=== PATIENT | male | born 1955 | race Caucasian/White ===

== ENCOUNTER 2016-10-10 09:59 | Emergency (ER) | payer BC ==
[2016-10-10] MEDS ORDERED: SODIUM CHLORIDE 0.9% 1,000 ML IV STA (10:23)
[2016-10-10 10:48] LABS: Basophils % (A) 0 %; CH 31.9; CHCM 34.4; Eosinophils # (A) 0.3 k/uL (0-0.7); Eosinophils % (A) 6 %; HCT 43.9 % (39.0-53.0); HDW 2.58; HGB 14.6 gm/dL (13.0-17.5); Luc % (Auto) 2; Lymphocytes # (A) 0.8 k/uL (1.0-4.8); Lymphocytes % (A) 15 %; MCH 30.9 pg (25.0-35.0); MCHC 33.2 g/dL (31.0-37.0); MCV 93.2 fL (80.0-100.0); Mean Platelet Volume 6.9; Monocytes # (A) 0.5 k/uL (0-1.0); Monocytes % (A) 9 %; Neutrophils # (A) 3.7 k/uL (1.3-7.7); Neutrophils % (A) 68 %; RBC 4.71 m/uL (4.30-5.90); WBC 5.5 k/uL (3.8-10.6)
[2016-10-10 10:55] LABS: ALT 42 U/L (21-72); AST 28 U/L (17-59); Alkaline Phosphatase 61 U/L (38-126); Anion Gap 10 mmol/L; Blood Urea Nitrogen 19 mg/dL (9-20); Calcium 10.2 mg/dL (8.4-10.2); Carbon Dioxide 25 mmol/L (22-30); Chloride 106 mmol/L (98-107); Glucose 116 mg/dL (74-99); Magnesium 1.8 mg/dL (1.6-2.3); Non-African American GFR(MDRD) >60 (>60 ml/min/1.73 sqM); Potassium 4.6 mmol/L (3.5-5.1); Sodium 141 mmol/L (137-145); Total Bilirubin 0.4 mg/dL (0.2-1.3); Total Protein 7.2 g/dL (6.3-8.2)
[2016-10-10 10:58] LABS: INR 1.1 (<1.1); Partial Thromboplastin Time 23.8 sec (22.0-30.0); Prothrombin Time 10.7 sec (9.0-12.0)
[2016-10-10] MEDS ORDERED: ONDANSETRON 4 MG/2 ML VIAL IVP STA (11:00)
--- NOTE | 2016-10-10 11:01 | ED ---
GI Bleed HPI - General Chief complaint: GI Bleed Stated complaint: RECTAL BLEEDING Time Seen by Provider: 10/10/16 10:14 Source: patient, RN notes reviewed Mode of arrival: ambulatory Limitations: no limitations - History of Present Illness Initial comments: 61-year-old male presents emergency Department chief complaint of rectal bleeding. Patient states this has been present for over 2 weeks. Patient states it started right after him having his cholecystectomy done by Dr. Zavala. Patient states that he had this secondary to being told that he had dysfunctional gallbladder. Patient states he was having nausea. Patient states she's been having ongoing nausea and which she originally had a Ramakrishna fundoplication and then a cholecystectomy. Patient states that he just feels off. Patient states that he still has his nausea and which they've initiated contributed to his [place] use after his surgery. Patient states that he was told that he had also colitis years ago by Dr. Delgado though he had a colonoscopy in July which showed no acute abnormality's. He states that he did have a history of hemorrhoids though Dr. Cee said there is no worries and no abnormalities on his colonoscopy. Patient denies any melena. Denies any fever or chills. Denies any dysuria hematuria. - Related Data Home Medications Medication Instructions Recorded Confirmed amLODIPine [Norvasc] 5 mg PO W/SUPPER 06/15/14 10/10/16 Krill Oil 500 mg PO DAILY 05/21/15 10/10/16 Temazepam [Restoril] 15 mg PO HS PRN 06/05/15 10/10/16 Rosuvastatin [Crestor] 20 mg PO DAILY 07/08/16 10/10/16 Lisinopril [Zestril] 10 mg PO W/SUPPER 09/08/16 10/10/16 Multivitamins, Thera [Multivitamin] 1 tab PO DAILY 09/08/16 10/10/16 Acetaminophen Tab [Tylenol Tab] 1,000 mg PO Q6HR PRN 10/10/16 10/10/16 Acetaminophen/Diphenhydramine 1 tab PO HS PRN 10/10/16 10/10/16 [Tylenol PM 500-25mg] Previous Rx's Medication Instructions Recorded Aspirin EC [Ecotrin Low Dose] 81 mg PO DAILY tablet. 05/24/15 Metoprolol Tartrate 12.5 mg PO BID #15 tab 05/24/15 ALPRAZolam [Xanax] 0.25 mg PO DAILY PRN #30 tab 06/06/15 Allergies Allergy/AdvReac Type Severity Reaction Status Date / Time Penicillins AdvReac Rash/Hives Verified 10/10/16 10:34 Review of Systems ROS Statement: Those systems with pertinent positive or pertinent negative responses have been documented in the HPI. ROS Other: All systems not noted in ROS Statement are negative. Past Medical History Past Medical History: Asthma, Chest Pain / Angina, GERD/Reflux, Hyperlipidemia, Hypertension, Myocardial Infarction (non Q-wave), Osteoarthritis (OA) Additional Past Medical History / Comment(s): . Last Myocardial Infarction Date:: 05/22/15 History of Any Multi-Drug Resistant Organisms: None Reported Past Surgical History: Heart Catheterization With Stent, Hernia Repair, Orthopedic Surgery Additional Past Surgical History / Comment(s): deviated septum, rt shoulder rotator cuff, EGD, colonoscopy,lt inguinal hernia repair, vivien fundoplication , left carpal tunnel Past Anesthesia/Blood Transfusion Reactions: No Reported Reaction Date of Last Stent Placement:: 05-23-15 Past Psychological History: Anxiety Additional Psychological History / Comment(s): . Smoking Status: Former smoker Past Alcohol Use History: Occasional Additional Past Alcohol Use History / Comment(s): quit smoking CIGARETTES at age 25, started smoking at age 16 Past Drug Use History: None Reported - Past Family History Sister(s) Family Medical History: Cancer (Blood cancer not determined to be leukemia or multiple myeloma) Mother Family Medical History: Chest Pain / Angina, Diabetes Mellitus Additional Family Medical History / Comment(s): age 84, heart problems Father Family Medical History: Chest Pain / Angina Additional Family Medical History / Comment(s): age 72 General Exam Limitations: no limitations General appearance: alert, in no apparent distress Head exam: Present: atraumatic, normocephalic, normal inspection Neck exam: Present: normal inspection. Absent: tenderness, meningismus, lymphadenopathy Respiratory exam: Present: normal lung sounds bilaterally. Absent: respiratory distress, wheezes, rales, rhonchi, stridor Cardiovascular Exam: Present: regular rate, normal rhythm, normal heart sounds. Absent: systolic murmur, diastolic murmur, rubs, gallop, clicks GI/Abdominal exam: Present: soft, tenderness (Minimal), normal bowel sounds. Absent: distended, guarding, rebound, rigid Back exam: Absent: CVA tenderness (R), CVA tenderness (L) Neurological exam: Present: alert, oriented X3, CN II-XII intact Course Vital Signs 10/10/16 10:10 Temperature 98.5 F Pulse Rate 52 L Respiratory 16 Rate Blood Pressure 110/52 O2 Sat by Pulse 98 Oximetry Medical Decision Making - Medical Decision Making 61-year-old male presented for rectal bleeding. This has been going on for several weeks. Patient's in [facility] and Hemoccult-negative at this time. Patient has follow up appointment on Thursday with Dr. Chan. Patient will be discharged at this time with follow-up. Return parameters were discussed. - Lab Data Result diagrams: 10/10/16 10:34 10/10/16 10:34 Lab Results 10/10/16 10/10/16 10/10/16 Range/Units 10:34 10:34 10:34 WBC 5.5 (3.8-10.6) k/uL RBC 4.71 (4.30-5.90) m/uL Hgb 14.6 (13.0-17.5) gm/dL Hct 43.9 (39.0-53.0) % MCV 93.2 (80.0-100.0) fL MCH 30.9 (25.0-35.0) pg MCHC 33.2 (31.0-37.0) g/dL RDW 13.0 (11.5-15.5) % Plt Count 217 (150-450) k/uL Neutrophils % 68 % Lymphocytes % 15 % Monocytes % 9 % Eosinophils % 6 % Basophils % 0 % Neutrophils # 3.7 (1.3-7.7) k/uL Lymphocytes # 0.8 L (1.0-4.8) k/uL Monocytes # 0.5 (0-1.0) k/uL Eosinophils # 0.3 (0-0.7) k/uL Basophils # 0.0 (0-0.2) k/uL PT (9.0-12.0) sec INR (<1.1) APTT (22.0-30.0) sec Sodium 141 (137-145) mmol/L Potassium 4.6 (3.5-5.1) mmol/L Chloride 106 (98-107) mmol/L Carbon Dioxide 25 (22-30) mmol/L Anion Gap 10 mmol/L BUN 19 (9-20) mg/dL Creatinine 0.77 (0.66-1.25) mg/dL Est GFR (MDRD) Af Amer >60 (>60 ml/min/1.73 sqM) Est GFR (MDRD) Non-Af >60 (>60 ml/min/1.73 sqM) Glucose 116 H (74-99) mg/dL Calcium 10.2 (8.4-10.2) mg/dL Magnesium 1.8 (1.6-2.3) mg/dL Total Bilirubin 0.4 (0.2-1.3) mg/dL AST 28 (17-59) U/L ALT 42 (21-72) U/L Alkaline Phosphatase 61 (38-126) U/L Total Creatine Kinase 163 (55-170) U/L CK-MB (CK-2) 3.5 H* (0.0-2.4) ng/mL CK-MB (CK-2) Rel Index 2.1 Troponin I <0.012 (0.000-0.034) ng/mL Total Protein 7.2 (6.3-8.2) g/dL Albumin 4.4 (3.5-5.0) g/dL Lipase 38 (23-300) U/L Stool Occult Blood (Negative) 10/10/16 10/10/16 Range/Units 10:34 12:04 WBC (3.8-10.6) k/uL RBC (4.30-5.90) m/uL Hgb (13.0-17.5) gm/dL Hct (39.0-53.0) % MCV (80.0-100.0) fL MCH (25.0-35.0) pg MCHC (31.0-37.0) g/dL RDW (11.5-15.5) % Plt Count (150-450) k/uL Neutrophils % % Lymphocytes % % Monocytes % % Eosinophils % % Basophils % % Neutrophils # (1.3-7.7) k/uL Lymphocytes # (1.0-4.8) k/uL Monocytes # (0-1.0) k/uL Eosinophils # (0-0.7) k/uL Basophils # (0-0.2) k/uL PT 10.7 (9.0-12.0) sec INR 1.1 (<1.1) APTT 23.8 (22.0-30.0) sec Sodium (137-145) mmol/L Potassium (3.5-5.1) mmol/L Chloride (98-107) mmol/L Carbon Dioxide (22-30) mmol/L Anion Gap mmol/L BUN (9-20) mg/dL Creatinine (0.66-1.25) mg/dL Est GFR (MDRD) Af Amer (>60 ml/min/1.73 sqM) Est GFR (MDRD) Non-Af (>60 ml/min/1.73 sqM) Glucose (74-99) mg/dL Calcium (8.4-10.2) mg/dL Magnesium (1.6-2.3) mg/dL Total Bilirubin (0.2-1.3) mg/dL AST (17-59) U/L ALT (21-72) U/L Alkaline Phosphatase (38-126) U/L Total Creatine Kinase (55-170) U/L CK-MB (CK-2) (0.0-2.4) ng/mL CK-MB (CK-2) Rel Index Troponin I (0.000-0.034) ng/mL Total Protein (6.3-8.2) g/dL Albumin (3.5-5.0) g/dL Lipase (23-300) U/L Stool Occult Blood Negative (Negative) Disposition Clinical Impression: Rectal bleeding Disposition: HOME SELF-CARE Condition: Stable Instructions: Gastrointestinal Bleeding (ED) Additional Instructions: Please return to the Emergency Department if symptoms worsen or any other concerns. Referrals: Rafat Eduardo MD [Primary Care Provider] - 1-2 days Samantha Mac MD [STAFF PHYSICIAN] - 1-2 days Time of Disposition: 12:21
[2016-10-10 11:12] LABS: Creatine Kinase 163 U/L (55-170)
--- NOTE | 2016-10-10 11:16 | XR ---
EXAMINATION TYPE: XR KUB DATE OF EXAM ORDERED: 10/10/2016 11:11 AM HISTORY: Abdominal pain and rectal bleeding. COMPARISON: Previous study dated 05/18/2013. FINDINGS: The abdominal gas pattern is normal. There is no evidence of obstruction or free air. Ther e is some vascular calcification within the pelvis. There is spondylosis deformans within the spine. IMPRESSION: NO ACUTE INTRA-ABDOMINAL ABNORMALITY.
[2016-10-10 11:26] LABS: Troponin I <0.012 ng/mL (0.000-0.034)
[2016-10-10 11:30] LABS: Creatine Kinase MB 3.5 ng/mL (0.0-2.4)
[2016-10-10 12:45] VITALS: BP 149/68; PULSE 65; RESP 18; TEMP 98.2
== END 2016-10-10 12:40 | disposition home or self-care (01) ==
LOC: EC 09:59
DX: K62.5 Hemorrhage of anus and rectum (principal); R11.0 Nausea; R10.819 Abdominal tenderness, unspecified site; Z90.49 Acquired absence of other specified parts of digestive tract; Z79.82 Long term (current) use of aspirin; Z79.899 Other long term (current) drug therapy; Z88.0 Allergy status to penicillin; Z95.5 Presence of coronary angioplasty implant and graft; F41.9 Anxiety disorder, unspecified; Z87.891 Personal history of nicotine dependence
CPT/HCPCS: 36415; 80053; 82550; 82553; 83690; 83735; 84484; 85025; 85610; 85730; 82272; 74000; 99284; 96374; 96361; J2405

== ENCOUNTER → 2017-03-30 | Outpatient (CLI) | payer BC ==
--- NOTE | 2017-03-30 21:31 | XR ---
EXAMINATION TYPE: XR chest 2V DATE OF EXAM: 03/30/2017 COMPARISON: Prior chest x-ray June 05, 2015. HISTORY: Shortness of breath for 3 days. TECHNIQUE: Frontal and lateral views of the chest are obtained. FINDINGS: There is no focal air space opacity, pleural effusion, or pneumothorax seen. The cardiac silhouette size is within normal limits. Bilateral hilar prominence raises concern for underlying pu lmonary artery hypertension. Some multilevel spurring in the thoracic spine is present. IMPRESSION: No acute cardiopulmonary process.
== END ==
LOC: RADXRMAIN 18:38
PROVIDERS: ATTEND Internal Medicine Geriatric Medicine
DX: R06.02 Shortness of breath (principal)
CPT/HCPCS: 71020; 85379

== ENCOUNTER → 2017-05-21 | Outpatient (CLI) | payer BC ==
--- NOTE | 2017-05-21 12:56 | XR ---
EXAMINATION TYPE: XR chest 2V DATE OF EXAM: 05/21/2017 COMPARISON: 03/30/2017 HISTORY: Chest pain. History of heart attack. TECHNIQUE: Frontal and lateral views of the chest are obtained. FINDINGS: There is no focal air space opacity, pleural effusion, or pneumothorax seen. The cardiac silhouette size is within normal limits. The osseous structures are intact. Mild degenerative oconnell es of the thoracic spine. Bilateral hilar prominence remains, that may clinically correlate with pulm onary arterial hypertension. IMPRESSION: No acute cardiopulmonary process.
== END ==
LOC: RADXRMAIN 12:39
PROVIDERS: ATTEND Internal Medicine Geriatric Medicine
DX: R06.02 Shortness of breath (principal)
CPT/HCPCS: 71020

== ENCOUNTER → 2017-09-08 | Outpatient (CLI) | payer BC ==
[2017-09-08 10:37] LABS: Basophils % (A) 0 %; CH 30.6; CHCM 32.1; Eosinophils # (A) 0.2 k/uL (0-0.7); Eosinophils % (A) 3 %; HCT 47.9 % (39.0-53.0); HDW 2.35; HGB 15.2 gm/dL (13.0-17.5); Luc # (Auto) 0.13; Luc % (Auto) 2; Lymphocytes # (A) 0.8 k/uL (1.0-4.8); Lymphocytes % (A) 14 %; MCH 30.4 pg (25.0-35.0); MCHC 31.8 g/dL (31.0-37.0); MCV 95.5 fL (80.0-100.0); Mean Platelet Volume 6.6; Monocytes # (A) 0.6 k/uL (0-1.0); Monocytes % (A) 9 %; Neutrophils # (A) 4.4 k/uL (1.3-7.7); Neutrophils % (A) 72 %; RBC 5.01 m/uL (4.30-5.90); RDW 14.3 % (11.5-15.5); WBC 6.1 k/uL (3.8-10.6); WBC (Perox) 5.97
[2017-09-08 10:48] LABS: ALT 40 U/L (21-72); AST 27 U/L (17-59); Alkaline Phosphatase 74 U/L (38-126); Anion Gap 9 mmol/L; Blood Urea Nitrogen 13 mg/dL (9-20); Carbon Dioxide 30 mmol/L (22-30); Chloride 103 mmol/L (98-107); Cholesterol 170 mg/dL (<200); Glucose 98 mg/dL (74-99); HDL Cholesterol 62 mg/dL (40-60); Non-African American GFR(MDRD) >60 (>60 ml/min/1.73 sqM); Potassium 4.7 mmol/L (3.5-5.1); Sodium 142 mmol/L (137-145); Total Bilirubin 0.4 mg/dL (0.2-1.3); Total Protein 6.8 g/dL (6.3-8.2)
== END | disposition home or self-care (01) ==
LOC: LABWHC1 10:03
PROVIDERS: ATTEND Internal Medicine Geriatric Medicine
DX: I10 Essential (primary) hypertension (principal); R79.9 Abnormal finding of blood chemistry, unspecified; E78.5 Hyperlipidemia, unspecified
CPT/HCPCS: 36415; 80053; 80061; 83036; 84439; 84443; 85025

== ENCOUNTER 2017-09-15 09:37 | Day surgery (SDC) | payer BC ==
[2017-09-10 08:36] VITALS: BMI 22.8
--- NOTE | 2017-09-14 22:26 | HP ---
HISTORY AND PHYSICAL CHIEF COMPLAINT: Right shoulder pain. 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 He is having pain with overhead use and at night. He notes weakness as well. He previously underwent open surgery for that shoulder in 2004. PAST MEDICAL HISTORY: Significant for hypertension, coronary artery disease. PAST SURGICAL HISTORY: Significant for previous cardiac stent placement and cholecystectomy along with open right shoulder surgery. FAMILY HISTORY: Significant for heart disease and cancer. SOCIAL HISTORY: Significant for social alcohol use. He quit smoking in 1979. REVIEW OF SYSTEMS: Sixteen point review of systems otherwise reviewed and noncontributory. EXAMINATION: The patient is approximately 5 feet 9 inches, 155 pounds of mesomorphic habitus. HEENT is nonfocal. Neck is supple. RIGHT SHOULDER: He has a healed anterior scar with some anterior deltoid atrophy. He has moderate subacromial crepitus. He is tender about the anterior subacromial space. Active range of motion: Forward elevation 160 degrees, external rotation with the arm to the side 50 degrees, internal rotation is to L1. Motor strength is 4/5 for external rotation with arm at the side, 4+ or 5 for abduction. Impingement, Neer and Speed tests are positive. His distal neurovascular otherwise appears intact in the right upper extremity. X-rays of the right shoulder obtained in the office show diminished humeral head to acromial distance. There is calcification adjacent to the greater tuberosity. IMPRESSION: Recurrent right rotator cuff tear/biceps tendinosis. RECOMMENDATIONS: I talked to the patient at length regarding his treatment options. He has tried previous therapy, injections and medications with only partial temporary relief. At this point, he opts to proceed with surgery. We will plan to proceed with arthroscopic evaluation with probable revision, subacromial decompression, possible arthroscopic rotator cuff repair versus debridement and possible biceps tenotomy. Risks and benefits were discussed at length in layman's terms. MMODL / IJN: [id number] /
[~2017-09-15 09:37] MED LIST: DEXAMETHASONE SOD PHOSPHATE 10 MG/ML 1 ML VIAL IV ONE; HYDROmorphone 0.5 MG/0.5 ML SYRINGE IVP PRN; LACTATED RINGERS 1,000 ML IV SCH; MIDAZOLAM 2 MG/2 ML VIAL IV PRN; ONDANSETRON 4 MG/2 ML VIAL IVP ONE; ceFAZolin IN SWFI 2 GM/20 ML SYRINGE IVP ONE
[2017-09-15 09:54] VITALS: RESP 16
--- NOTE | 2017-09-15 10:06 | P.ONQ ---
Anesthesiology Proc Note - PNB - Peripheral Nerve Block Performed Right Interscalene Single Time Out Performed: Yes (Time Out at 10:12) Procedure Start Time: 10:13 Procedure Stop Time: :21 Indication: Acute Post-Operative Pain, Requested by physician Sedation Type: Sedate with meaningful contact maintained Preparation: Sterile Prep Position: Supine Catheter: None Needle Types: Facet Needle Size: 100mm (4") Needle Gauge: 20 Technique: Ultrasound Injectate: 0.5% Ropivacaine (see comment for volume) (30 mls) Blood Aspirated: No Pain Paresthesia on Injection Noted: No Resistance on Injection: Normal Events: Uneventful and Well Tolerated
[2017-09-15] MEDS ORDERED: LIDOCAINE 1% 20 ML VIAL (10MG/ML) FOR IV START INTRADERMA ONE (10:10)
[2017-09-15] MEDS ORDERED: EPINEPHrine (PF) 1 ML in SODIUM CHLORIDE 0.9% IRRIGATIO 3,000 ML IRRIGATION ONE ×8 (10:54)
[2017-09-15] MEDS ORDERED: ROPIVACAINE 5 MG/ML 30 ML VIAL ONE (10:54)
[2017-09-15] MEDS ORDERED: SUCCINYLCHOLINE CHLORIDE 100 MG/5 ML SYR IV ONE (10:54)
[2017-09-15] MEDS ORDERED: ePHEDrine SULFATE/0.9% NACL/PF 50 MG/5 ML SYRINGE IV ONE (10:54)
[2017-09-15] MEDS ORDERED: fentaNYL (PF) 50 MCG/ML 2 ML AMP ONE (10:54)
[2017-09-15] MEDS ORDERED: MIDAZOLAM 2 MG/2 ML VIAL ONE (10:54)
[2017-09-15] MEDS ORDERED: PROPOFOL 10 MG/ML 20 ML VIAL IV ONE (10:54)
[2017-09-15] MEDS ORDERED: LIDOCAINE 1% INJ 10MG/ML (20 ML MDV) ONE (10:54)
[2017-09-15 12:29] VITALS: TEMP 97
--- NOTE | 2017-09-15 12:30 | P.OP ---
Date of Procedure: 09/15/17 Preoperative Diagnosis: Symptomatic right rotator cuff tear Postoperative Diagnosis: 3 cm protracted rotator cuff tear/high-grade partial-thickness tear long head of the biceps/grade 2 chondral injury central glenoid Procedure(s) Performed: Right shoulder arthroscopic biceps tenotomy/rotator cuff repair/glenoid chondrectomy Implants: Arthrex 4.75 mm swivel lock anchor 4 [facility] Surgeon: Jimmie Self It Infrastructure Manager #1: Vazquez Chatterjee Estimated Blood Loss (ml): 10 Pathology: none sent Condition: stable Disposition: PACU Indications for Procedure: The patient's a 62-year-old gentleman who presents with progressive right shoulder pain despite conservative measures. Clinically he was noted to have evidence of a symptomatic recurrent rotator cuff tear. He did undergo an open repair many years ago. A discussion of the risks and benefits of continued conservative measures versus operative intervention was made with patient. He opted to proceed with surgery. Operative risks to include infection, neurovascular injury, development of blood clots, possible tendon rerupture, possible postoperative stiffness and need for subsequent procedures was discussed. Informed consent was obtained. Operative Findings: As below Description of Procedure: The patient was brought to the operating room, and after induction of general anesthesia was placed in a beachchair position. The bony prominences were appropriately padded. I examined the right shoulder. He did have some restriction to maximum abduction and external rotation. No gross adhesions were encountered. The right upper extremity was prepped and draped in normal fashion. The bony outlines the acromion, distal clavicle, and coracoid process were outlined with a skin marker. The glenohumeral joint was inflated with 50 mL of saline utilizing a spinal needle from posterior approach. A posterior portal was made through a 5 mm skin incision 1 cm medial and inferior to the posterior lateral border of the acromion. A blunt trocar was used to easily into the joint. Diagnostic arthroscopy was performed. An anterior portal was made just above the subscapularis tendon lateral to the coracoid process through a 5 mm skin incision. The patient was noted to have a high-grade partial-thickness tear of the intra-articular portion of the long head of the biceps. It was elected to proceed with release/tenotomy at this point. This was released from the superior labrum with electrocautery and allowed to retract the bicipital groove. A tear the superior labrum was also noted in was debrided back to stable base with a motorized shaver. A grade 2 chondral injury was noted involving the central portion of the glenoid. There was a loose chondral fragment that was debrided back to stable base with a motorized shaver. The subscapularis appeared intact. The anterior labrum was intact. The inferior recess was inspected. The rotator cuff was inspected and a 3 cm tear involving the infraspinatus and supraspinatus tendons was noted that was retracted not quite to the glenoid. The arthroscope was placed in the subacromial space. A lateral portal was made through a 5 mm skin incision 2 cm inferior to the anterolateral border of the acromion. Previous acromioplasty was performed and was felt to be adequate. The rotator cuff was then mobilized in the bursal tissue debrided with a motorized shaver. A traction suture was placed and was able to bring this back to the greater tuberosity. The greater tuberosity was prepared and lightly decorticated utilizing a motorized minesh down to bleeding bony surface. An accessory superior lateral portal was made through a 4 mm skin incision just lateral to the acromion. The appropriate starting awl was utilized placing 2 anchors just off the articular surface. The anchors were 4.75 mm in diameter and had #2 fiber tape attached. These were then passed through the rotator cuff with a scorpion suture passer. With the shoulder in slight abduction a lateral row was then created crisscrossing the sutures and appropriate retensioning rotator cuff repair. Again good purchase was obtained. Final arthroscopic view showed adequate compression of the rotator cuff on the greater tuberosity. The arthroscope was then removed. The portals were closed with simple 3-0 nylon suture. A sterile dressing was applied in addition to an abductor brace. The patient was awoken from general anesthesia and transferred to recovery room in good condition. Blood loss was estimated at 10 mL. No complications were incurred. Sponge and needle counts were correct at the end of the case.
[2017-09-15 13:22] VITALS: BP 124/66; PULSE 84
== END 2017-09-15 13:49 | disposition home or self-care (01) ==
LOC: OR 09:37
PROVIDERS: ATTEND Orthopaedic Surgery
DX: M75.101 Unspecified rotator cuff tear or rupture of right shoulder, not specified as traumatic (principal); S46.112A Strain of muscle, fascia and tendon of long head of biceps, left arm, initial encounter; S49.91XA Unspecified injury of right shoulder and upper arm, initial encounter; X58.XXXA Exposure to other specified factors, initial encounter; I25.10 Atherosclerotic heart disease of native coronary artery without angina pectoris; I10 Essential (primary) hypertension; Z87.891 Personal history of nicotine dependence; E78.5 Hyperlipidemia, unspecified; Z95.5 Presence of coronary angioplasty implant and graft; J45.909 Unspecified asthma, uncomplicated; M19.90 Unspecified osteoarthritis, unspecified site; K21.9 Gastro-esophageal reflux disease without esophagitis; Z79.82 Long term (current) use of aspirin; Z79.899 Other long term (current) drug therapy; Z88.0 Allergy status to penicillin
CPT/HCPCS: 64415; 29826; 29827; C1713 ×2; C1894; J2250; J1100; J0690; J2405; J0171; J2001; J3010; J2795; J0330; J2704

== ENCOUNTER 2018-10-29 10:18 | Day surgery (SDC) | payer BC ==
[2018-10-27 15:11] VITALS: BMI 23.6
[~2018-10-29 10:18] MED LIST changes: -DEXAMETHASONE SOD PHOSPHATE 10 MG/ML 1 ML VIAL IV ONE; -HYDROmorphone 0.5 MG/0.5 ML SYRINGE IVP PRN; -MIDAZOLAM 2 MG/2 ML VIAL IV PRN; -ONDANSETRON 4 MG/2 ML VIAL IVP ONE; -ceFAZolin IN SWFI 2 GM/20 ML SYRINGE IVP ONE
[2018-10-29 10:59] VITALS: RESP 18; TEMP 96.7
[2018-10-29] MEDS ORDERED: LIDOCAINE 1% 20 ML VIAL (10MG/ML) FOR IV START INTRADERMA ONE (11:10)
[2018-10-29] MEDS ORDERED: PROPOFOL 10 MG/ML 20 ML VIAL IV ONE (11:55)
--- NOTE | 2018-10-29 12:07 | P.PCN ---
Date of Procedure: 10/29/18 Procedure(s) Performed: BRIEF HISTORY: Patient is a 63-year-old, pleasant, white male, with history of GERD scheduled for an upper endoscopy as a part of evaluation of worsening epigastric pain and heartburn. He underwent Tessa fundoplication in 2014 and few months later started experiencing GERD symptoms and has been taking Prilosec on and off. The last 2 weeks has been taking it twice daily andsymptoms have significantly improved. PROCEDURE PERFORMED: Esophagogastroduodenoscopy with biopsy. PREOPERATIVE DIAGNOSIS: []. IV sedation per anesthesia. PROCEDURE: After informed consent was obtained, the patient was brought into the endoscopy unit. IV sedation was administered by Anesthesia under continuous monitoring. Initially the Olympus GIF-140 video endoscope was inserted into the mouth. Esophagus intubated without any difficulty. It was gradually advanced into the stomach and duodenum and carefully examined. The bulb and the second part of the duodenum appeared normal. The scope at this time was withdrawn to the stomach, adequately insufflated with air, and upon careful examination, mucosa of the antrum, body, appeared normal. The fundus of the stomach there was a 5 mm polyp that was biopsied. On retroflexion there was evidence of intact Tessa fundoplication. Rest of the cardia and the fundus appeared normal. The scope was then withdrawn into the esophagus. The GE junction was located at 42 cm from the incisors. It appeared slightly irregular and there was a 2 mm segment of Carson's appearing mucosa just proximal to the GE junction which was biopsied. The rest of the esophagus appeared normal. There were no erosions or ulcerations seen and the patient tolerated the procedure well. IMPRESSION: 1. 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 2. Small gastric polyp status post biopsy. RECOMMENDATIONS: The findings of this examination were discussed with the patient as well as his family. He was advised to continue with Prilosec 20 mg twice daily and follow antireflux measures. He'll be seen in office in 4 weeks..
[2018-10-29 12:11] VITALS: PULSE 52
[2018-10-29 12:33] VITALS: BP 121/71
== END 2018-10-29 12:44 | disposition home or self-care (01) ==
LOC: ORWHC2ENDO 10:18
PROVIDERS: ATTEND Internal Medicine Gastroenterology
DX: K31.7 Polyp of stomach and duodenum (principal); K21.0 Gastro-esophageal reflux disease with esophagitis; I25.10 Atherosclerotic heart disease of native coronary artery without angina pectoris; I10 Essential (primary) hypertension; E78.5 Hyperlipidemia, unspecified; F41.9 Anxiety disorder, unspecified; I25.2 Old myocardial infarction; Z79.82 Long term (current) use of aspirin; Z79.899 Other long term (current) drug therapy; Z88.0 Allergy status to penicillin
CPT/HCPCS: 88305; 43239; J2704

== ENCOUNTER 2020-02-23 18:55 | Inpatient (IN) | payer BC ==
[2020-02-23] MEDS ORDERED: ONDANSETRON 4 MG/2 ML VIAL IVP STA (19:29)
[2020-02-23] MEDS ORDERED: SODIUM CHLORIDE 0.9% 1,000 ML IV STA (19:29)
[2020-02-23] MEDS ORDERED: ACETAMINOPHEN TAB 500 MG TAB PO STA (19:30)
--- NOTE | 2020-02-23 19:53 | ED ---
Abdominal Pain HPI - General Source: patient Mode of arrival: ambulatory Limitations: no limitations <Emily Finney - Last Filed: 02/24/20 01:44> <Jenny Cisneros - Last Filed: 02/26/20 15:32> - General Chief Complaint: Abdominal Pain Stated Complaint: Fever, nausea Time Seen by Provider: 02/23/20 19:14 - History of Present Illness Initial Comments: Patient is a 64-year-old male presenting to the emergency Department with complaints of a fever and lower abdominal pain has been going on for 4 days. Patient states hes symptom started on Thursday with some mild body aches, chills. The following day he took his temperature and did have a fever about 102. Patient was also complaining of lower abdominal discomfort. He states he does have a history of left-sided hernia repair, cholecystectomy. No other abdominal surgeries. He states he's been having regular bowel movements that have been darker in color. He does admit to possible hematuria that he noticed today. Patient also has been nauseous, no vomiting. Patient did call his PCP, Dr. Eduardo, who recommended patient get tested for Covid, given his symptoms. Patient did get tested and came back negative 2 days ago. Patient states his pain is in the lower abdomen pelvic area and feels like it is getting worse. He states he has been taking Tylenol for the fever however it comes back very quickly. He denies any chest pain, shortness of breath, cough, congestion. He has no further complaints at this time. Upon arrival to the ER, patient was febrile to 100.6, pulse 60, respiratory 18, BP 138/69, 99% on room air. (Emily Finney) - Related Data Home Medications Medication Instructions Recorded Confirmed Acetaminophen/Diphenhydramine 1 tab PO HS PRN 10/10/16 02/24/20 [Tylenol PM 500-25mg] Rosuvastatin Calcium [Crestor] 20 mg PO WESA 10/27/18 02/24/20 ALPRAZolam [Xanax] 0.25 mg PO BID PRN 02/24/20 02/24/20 Albuterol Inhaler [Ventolin Hfa 2 puff INHALATION RT-Q4H PRN 02/24/20 02/24/20 Inhaler] Pantoprazole [Protonix] 40 mg PO DAILY 02/24/20 02/24/20 amLODIPine BES/OLMESARTAN MED 1 tab PO DAILY 02/24/20 02/24/20 [amLODIPine BES/OLMESARTAN MED 5-20 mg] Previous Rx's Medication Instructions Recorded Aspirin EC [Ecotrin Low Dose] 81 mg PO DAILY tablet. 05/24/15 metroNIDAZOLE [Flagyl] 500 mg PO Q8HR #21 tab 02/26/20 Allergies Allergy/AdvReac Type Severity Reaction Status Date / Time clindamycin Allergy Rash/Hives Verified 02/24/20 08:31 Penicillins Allergy Rash/Hives Verified 02/24/20 08:31 Review of Systems ROS Other: All systems not noted in ROS Statement are negative. <Emily Finney - Last Filed: 02/24/20 01:44> ROS Other: All systems not noted in ROS Statement are negative. <Jenny Cisneros - Last Filed: 02/26/20 15:32> ROS Statement: Those systems with pertinent positive or pertinent negative responses have been documented in the HPI. Past Medical History Past Medical History: Asthma, Chest Pain / Angina, GERD/Reflux, Hyperlipidemia, Hypertension, Myocardial Infarction (non Q-wave), Osteoarthritis (OA) Additional Past Medical History / Comment(s): . Last Myocardial Infarction Date:: 05/22/15 History of Any Multi-Drug Resistant Organisms: None Reported Past Surgical History: Cholecystectomy, Heart Catheterization With Stent, Hernia Repair, Orthopedic Surgery Additional Past Surgical History / Comment(s): deviated septum, rt shoulder rotator cuff, EGD, colonoscopy,lt inguinal hernia repair, vivien fundoplication, left carpal tunnel Past Anesthesia/Blood Transfusion Reactions: No Reported Reaction Date of Last Stent Placement:: 05-23-15 Past Psychological History: Anxiety Smoking Status: Former smoker Past Alcohol Use History: Occasional Past Drug Use History: Marijuana - Past Family History Sister(s) Family Medical History: Cancer (Blood cancer not determined to be leukemia or multiple myeloma) Mother Family Medical History: Chest Pain / Angina, Diabetes Mellitus Additional Family Medical History / Comment(s): age 84, heart problems Father Family Medical History: Chest Pain / Angina Additional Family Medical History / Comment(s): age 72 <Emily Finney - Last Filed: 02/24/20 01:44> General Exam Limitations: no limitations <Emily Finney - Last Filed: 02/24/20 01:44> - General Exam Comments Initial Comments: GENERAL: Well-appearing, well-nourished and in no acute distress. Flushed appearance. HEAD: Atraumatic, normocephalic. EYES: Pupils equal round and reactive to light, extraocular movements intact, sclera anicteric, conjunctiva are normal. ENT: TMs normal, nares patent, oropharynx clear without exudates. Moist mucous membranes. NECK: Normal range of motion, supple without lymphadenopathy or JVD. LUNGS: Breath sounds clear to auscultation bilaterally and equal. No wheezes rales or rhonchi. HEART: Regular rate and rhythm without murmurs, rubs or gallops. ABDOMEN: Lower abdominal tenderness with palpation, increased left lower quadrant when compared to right lower quadrant. Soft, normoactive bowel sounds. No guarding, no rebound. No masses appreciated. : Deferred Rectal: Stool Occult positive, no abnormality felt, no pain. EXTREMITIES: Normal range of motion, no pitting or edema. No clubbing or cyanosis. NEUROLOGICAL: Cranial nerves II through XII grossly intact. Normal speech, normal gait. PSYCH: Normal mood, normal affect. SKIN: Warm, Dry, normal turgor, no rashes or lesions noted. (Emily Finney) Course Vital Signs 02/23/20 02/23/20 02/23/20 18:58 20:25 22:14 Temperature 100.6 F H 98.6 F Pulse Rate 60 69 63 Respiratory 18 18 18 Rate Blood Pressure 138/69 154/76 138/65 O2 Sat by Pulse 99 100 96 Oximetry Medical Decision Making - Lab Data Result diagrams: 02/23/20 20:14 02/23/20 20:14 <Emily Finney - Last Filed: 02/24/20 01:44> - Lab Data Result diagrams: 02/26/20 08:50 02/26/20 08:50 <Jenny Cisneros - Last Filed: 02/26/20 15:32> - Medical Decision Making Patient is a 64-year-old male presenting with a fever and lower abdominal pain 4 days. Patient did arrive febrile to 100.6. Exam revealed lower abdominal tenderness, increased in the left lower quadrant. No other acute findings. Laboratory feels neutropenia at 3.1, sodium is 133, lactic acid is 1.3, urine shows moderate amount of blood, no signs of infection, Stool occult positive. CT of the abdomen was obtained and shows no acute abnormalities. Patient was given fluids, Tylenol, pain control. Patient is comfortable at this time. He is afebrile now. Patient will be admitted for his abdominal pain, fever, leukopenia. We will continue with fluids, pain control, Protonix and will start antibiotics. GI and urology will be on consult. Blood cultures are pending. Dr. Onofre is accepting. Patient is in agreement with this plan of care. He is discussed with Dr. Cisneros. (Emily Finney) I was available for consultation in the emergency department. The history and physical exam were done by the midlevel provider. I was consulted for this patients care. I reviewed the case with the midlevel provider and based on their presentation of the patient, I agree with the assessment, medical decision making and plan of care as documented. I evaluated the patient myself. I discussed the patients care with Dr. Onofre who accepted admission of the patient. Chart was dictated using [employer] dictation software. Attempts were made to correct any dictation errors however some typographical errors may persist. Patient was seen during a national state of emergency due to the Covid-19 pandemic. (Jenny Cisneros) - Lab Data Lab Results 02/23/20 02/23/20 02/23/20 Range/Units 20:14 20:14 20:14 WBC 3.1 L (3.8-10.6) k/uL RBC 4.80 (4.30-5.90) m/uL Hgb 14.7 (13.0-17.5) gm/dL Hct 44.6 (39.0-53.0) % MCV 92.9 (80.0-100.0) fL MCH 30.6 (25.0-35.0) pg MCHC 32.9 (31.0-37.0) g/dL RDW 12.8 (11.5-15.5) % Plt Count 109 L (150-450) k/uL Neutrophils % 71 % Lymphocytes % 13 % Monocytes % 5 % Eosinophils % 7 % Basophils % 1 % Neutrophils # 2.2 (1.3-7.7) k/uL Lymphocytes # 0.4 L (1.0-4.8) k/uL Monocytes # 0.2 (0-1.0) k/uL Eosinophils # 0.2 (0-0.7) k/uL Basophils # 0.0 (0-0.2) k/uL PT 10.1 (9.0-12.0) sec INR 1.0 (<1.2) APTT 25.0 (22.0-30.0) sec Sodium (137-145) mmol/L Potassium (3.5-5.1) mmol/L Chloride (98-107) mmol/L Carbon Dioxide (22-30) mmol/L Anion Gap mmol/L BUN (9-20) mg/dL Creatinine (0.66-1.25) mg/dL Est GFR (CKD-EPI)AfAm (>60 ml/min/1.73 sqM) Est GFR (CKD-EPI)NonAf (>60 ml/min/1.73 sqM) Glucose (74-99) mg/dL Plasma Lactic Acid Jose (0.7-2.0) mmol/L Calcium (8.4-10.2) mg/dL Total Bilirubin (0.2-1.3) mg/dL AST (17-59) U/L ALT (4-49) U/L Alkaline Phosphatase (38-126) U/L Total Protein (6.3-8.2) g/dL Albumin (3.5-5.0) g/dL Amylase (30-110) U/L Lipase (23-300) U/L Urine Color Yellow Urine Appearance Clear (Clear) Urine pH 6.5 (5.0-8.0) Ur Specific [place] 1.023 (1.001-1.035) Urine Protein Trace H (Negative) Urine Glucose (UA) Negative (Negative) Urine Ketones Negative (Negative) Urine Blood Moderate H (Negative) Urine Nitrite Negative (Negative) Urine Bilirubin Negative (Negative) Urine Urobilinogen 2.0 (<2.0) mg/dL Ur Leukocyte Esterase Negative (Negative) Urine RBC 49 H (0-5) /hpf Urine WBC 5 (0-5) /hpf Ur Squamous Epith Cells <1 (0-4) /hpf Urine Bacteria Rare H (None) /hpf Urine Mucus Rare H (None) /hpf Stool Occult Blood (Negative) Coronavirus (PCR) (Not Detected) 02/23/20 02/23/20 02/23/20 Range/Units 20:14 20:14 22:16 WBC (3.8-10.6) k/uL RBC (4.30-5.90) m/uL Hgb (13.0-17.5) gm/dL Hct (39.0-53.0) % MCV (80.0-100.0) fL MCH (25.0-35.0) pg MCHC (31.0-37.0) g/dL RDW (11.5-15.5) % Plt Count (150-450) k/uL Neutrophils % % Lymphocytes % % Monocytes % % Eosinophils % % Basophils % % Neutrophils # (1.3-7.7) k/uL Lymphocytes # (1.0-4.8) k/uL Monocytes # (0-1.0) k/uL Eosinophils # (0-0.7) k/uL Basophils # (0-0.2) k/uL PT (9.0-12.0) sec INR (<1.2) APTT (22.0-30.0) sec Sodium 133 L (137-145) mmol/L Potassium 4.2 (3.5-5.1) mmol/L Chloride 99 (98-107) mmol/L Carbon Dioxide 27 (22-30) mmol/L Anion Gap 7 mmol/L BUN 19 (9-20) mg/dL Creatinine 0.90 (0.66-1.25) mg/dL Est GFR (CKD-EPI)AfAm >90 (>60 ml/min/1.73 sqM) Est GFR (CKD-EPI)NonAf 90 (>60 ml/min/1.73 sqM) Glucose 102 H (74-99) mg/dL Plasma Lactic Acid Jose 1.3 (0.7-2.0) mmol/L Calcium 9.0 (8.4-10.2) mg/dL Total Bilirubin 0.5 (0.2-1.3) mg/dL AST 32 (17-59) U/L ALT 22 (4-49) U/L Alkaline Phosphatase 57 (38-126) U/L Total Protein 6.3 (6.3-8.2) g/dL Albumin 3.5 (3.5-5.0) g/dL Amylase 68 (30-110) U/L Lipase 54 (23-300) U/L Urine Color Urine Appearance (Clear) Urine pH (5.0-8.0) Ur Specific [place] (1.001-1.035) Urine Protein (Negative) Urine Glucose (UA) (Negative) Urine Ketones (Negative) Urine Blood (Negative) Urine Nitrite (Negative) Urine Bilirubin (Negative) Urine Urobilinogen (<2.0) mg/dL Ur Leukocyte Esterase (Negative) Urine RBC (0-5) /hpf Urine WBC (0-5) /hpf Ur Squamous Epith Cells (0-4) /hpf Urine Bacteria (None) /hpf Urine Mucus (None) /hpf Stool Occult Blood (Negative) Coronavirus (PCR) Not Detected (Not Detected) 02/23/20 02/24/20 02/25/20 Range/Units 23:15 09:27 07:53 WBC 3.0 L 6.2 (3.8-10.6) k/uL RBC 3.97 L 4.45 (4.30-5.90) m/uL Hgb 13.0 13.4 (13.0-17.5) gm/dL Hct 37.3 L 41.1 (39.0-53.0) % MCV 93.8 92.4 (80.0-100.0) fL MCH 32.7 30.2 (25.0-35.0) pg MCHC 34.8 32.7 (31.0-37.0) g/dL RDW 12.9 12.9 (11.5-15.5) % Plt Count 99 L 121 L (150-450) k/uL Neutrophils % % Lymphocytes % % Monocytes % % Eosinophils % % Basophils % % Neutrophils # (1.3-7.7) k/uL Lymphocytes # (1.0-4.8) k/uL Monocytes # (0-1.0) k/uL Eosinophils # (0-0.7) k/uL Basophils # (0-0.2) k/uL PT (9.0-12.0) sec INR (<1.2) APTT (22.0-30.0) sec Sodium (137-145) mmol/L Potassium (3.5-5.1) mmol/L Chloride (98-107) mmol/L Carbon Dioxide (22-30) mmol/L Anion Gap mmol/L BUN (9-20) mg/dL Creatinine (0.66-1.25) mg/dL Est GFR (CKD-EPI)AfAm (>60 ml/min/1.73 sqM) Est GFR (CKD-EPI)NonAf (>60 ml/min/1.73 sqM) Glucose (74-99) mg/dL Plasma Lactic Acid Jose (0.7-2.0) mmol/L Calcium (8.4-10.2) mg/dL Total Bilirubin (0.2-1.3) mg/dL AST (17-59) U/L ALT (4-49) U/L Alkaline Phosphatase (38-126) U/L Total Protein (6.3-8.2) g/dL Albumin (3.5-5.0) g/dL Amylase (30-110) U/L Lipase (23-300) U/L Urine Color Urine Appearance (Clear) Urine pH (5.0-8.0) Ur Specific [place] (1.001-1.035) Urine Protein (Negative) Urine Glucose (UA) (Negative) Urine Ketones (Negative) Urine Blood (Negative) Urine Nitrite (Negative) Urine Bilirubin (Negative) Urine Urobilinogen (<2.0) mg/dL Ur Leukocyte Esterase (Negative) Urine RBC (0-5) /hpf Urine WBC (0-5) /hpf Ur Squamous Epith Cells (0-4) /hpf Urine Bacteria (None) /hpf Urine Mucus (None) /hpf Stool Occult Blood Positive (Negative) Coronavirus (PCR) (Not Detected) 02/25/20 Range/Units 07:53 WBC (3.8-10.6) k/uL RBC (4.30-5.90) m/uL Hgb (13.0-17.5) gm/dL Hct (39.0-53.0) % MCV (80.0-100.0) fL MCH (25.0-35.0) pg MCHC (31.0-37.0) g/dL RDW (11.5-15.5) % Plt Count (150-450) k/uL Neutrophils % % Lymphocytes % % Monocytes % % Eosinophils % % Basophils % % Neutrophils # (1.3-7.7) k/uL Lymphocytes # (1.0-4.8) k/uL Monocytes # (0-1.0) k/uL Eosinophils # (0-0.7) k/uL Basophils # (0-0.2) k/uL PT (9.0-12.0) sec INR (<1.2) APTT (22.0-30.0) sec Sodium 131 L (137-145) mmol/L Potassium 3.6 (3.5-5.1) mmol/L Chloride 101 (98-107) mmol/L Carbon Dioxide 23 (22-30) mmol/L Anion Gap 7 mmol/L BUN 10 (9-20) mg/dL Creatinine 0.77 (0.66-1.25) mg/dL Est GFR (CKD-EPI)AfAm >90 (>60 ml/min/1.73 sqM) Est GFR (CKD-EPI)NonAf >90 (>60 ml/min/1.73 sqM) Glucose 110 H (74-99) mg/dL Plasma Lactic Acid Jose (0.7-2.0) mmol/L Calcium 8.7 (8.4-10.2) mg/dL Total Bilirubin 0.4 (0.2-1.3) mg/dL AST 39 (17-59) U/L ALT 25 (4-49) U/L Alkaline Phosphatase 51 (38-126) U/L Total Protein 5.9 L (6.3-8.2) g/dL Albumin 3.1 L (3.5-5.0) g/dL Amylase (30-110) U/L Lipase (23-300) U/L Urine Color Urine Appearance (Clear) Urine pH (5.0-8.0) Ur Specific [place] (1.001-1.035) Urine Protein (Negative) Urine Glucose (UA) (Negative) Urine Ketones (Negative) Urine Blood (Negative) Urine Nitrite (Negative) Urine Bilirubin (Negative) Urine Urobilinogen (<2.0) mg/dL Ur Leukocyte Esterase (Negative) Urine RBC (0-5) /hpf Urine WBC (0-5) /hpf Ur Squamous Epith Cells (0-4) /hpf Urine Bacteria (None) /hpf Urine Mucus (None) /hpf Stool Occult Blood (Negative) Coronavirus (PCR) (Not Detected) Disposition Decision Date: 02/23/20 Decision Time: 22:17 <Emily Finney - Last Filed: 02/24/20 01:44> <Jenny Cisneros - Last Filed: 02/26/20 15:32> Clinical Impression: Abdominal pain, Leukopenia, Nausea, Positive occult stool blood test Disposition: ADMITTED IP TO THIS [facility] Condition: Good
[2020-02-23 20:32] LABS: Basophils % (A) 1 %; Eosinophils # (A) 0.2 k/uL (0-0.7); Eosinophils % (A) 7 %; HCT 44.6 % (39.0-53.0); HGB 14.7 gm/dL (13.0-17.5); Lymphocytes # (A) 0.4 k/uL (1.0-4.8); Lymphocytes % (A) 13 %; MCH 30.6 pg (25.0-35.0); MCHC 32.9 g/dL (31.0-37.0); MCV 92.9 fL (80.0-100.0); Monocytes # (A) 0.2 k/uL (0-1.0); Monocytes % (A) 5 %; Neutrophils # (A) 2.2 k/uL (1.3-7.7); Neutrophils % (A) 71 %; Platelet Count 109 k/uL (150-450); RDW 12.8 % (11.5-15.5); WBC 3.1 k/uL (3.8-10.6)
[2020-02-23 20:36] LABS: Appearance,Urine Clear (Clear); Bacteria,Urine Rare /hpf; Bilirubin,Urine Negative (Negative); Blood,Urine Moderate (Negative); Color,Urine Yellow; Glucose,Urine (UA) Negative (Negative); Ketones,Urine Negative (Negative); Leukocyte Esterase,Urine Negative (Negative); Mucus,Urine Rare /hpf; Nitrite,Urine Negative (Negative); PH, Urine 6.5 (5.0-8.0); Protein,Urine Trace (Negative); RBC,Urine 49 /hpf (0-5); Specific Gravity,Urine 1.023 (1.001-1.035); Squamous Epithelial Cell,Urine <1 /hpf (0-4); WBC,Urine 5 /hpf (0-5)
[2020-02-23 20:42] LABS: ALT 22 U/L (4-49); AST 32 U/L (17-59); African American GFR (CKD) >90 (>60 ml/min/1.73 sqM); Albumin 3.5 g/dL (3.5-5.0); Alkaline Phosphatase 57 U/L (38-126); Amylase 68 U/L (30-110); Anion Gap 7 mmol/L; Blood Urea Nitrogen 19 mg/dL (9-20); Carbon Dioxide 27 mmol/L (22-30); Chloride 99 mmol/L (98-107); Glucose 102 mg/dL (74-99); Non-African American GFR(CKD) 90 (>60 ml/min/1.73 sqM); Potassium 4.2 mmol/L (3.5-5.1); Sodium 133 mmol/L (137-145); Total Bilirubin 0.5 mg/dL (0.2-1.3); Total Protein 6.3 g/dL (6.3-8.2)
[2020-02-23 20:45] LABS: Prothrombin Time 10.1 sec (9.0-12.0)
--- NOTE | 2020-02-23 21:02 | CT ---
EXAMINATION TYPE: CT abdomen pelvis w con DATE OF EXAM: 02/23/2020 COMPARISON: None HISTORY: Abdominal pain and fever. CT DLP: 789.7 mGycm Automated exposure control for dose reduction was used. TECHNIQUE: Helical acquisition of images was performed from the lung bases through the pelvis. CONTRAST: Performed without Oral Contrast and with IV Contrast, patient injected with 100 mL of Isovu e 300. FINDINGS: LUNG BASES: No significant abnormality is appreciated. LIVER/GB: No significant abnormality is appreciated. PANCREAS: No significant abnormality is seen. SPLEEN: No significant abnormality is seen. ADRENALS: No significant abnormality is seen. KIDNEYS: No significant abnormality is seen. PERITONEAL CAVITY: There is no pneumoperitoneum in the abdomen or pelvis. There is no abdominal perit mckeon fluid. In the pelvis, there is a scant volume of gravity-dependent fluid in the cul-de-sac, a n onspecific finding which is likely reactive. RETROPERITONEAL ADENOPATHY: None visualized REPRODUCTIVE ORGANS: No significant abnormality is seen URINARY BLADDER: No significant abnormality is seen. PELVIC ADENOPATHY: None visualized. OSSEOUS STRUCTURES: No significant abnormality is seen. BOWEL: No significant abnormality is seen. OTHER: No acute vascular findings. IMPRESSION: NO ACUTE CT PROCESS.
[2020-02-23] MEDS ORDERED: MORPHINE SULFATE 4 MG/ML SYRINGE IVP STA (21:45)
[2020-02-23] MEDS ORDERED: PANTOPRAZOLE 40 MG/10 ML VIAL IVP STA (22:09)
[2020-02-23] MEDS ORDERED: NALOXONE 0.4 MG/ML 1 ML VIAL IV PRN (22:14)
[2020-02-23] MEDS ORDERED: ACETAMINOPHEN TAB 325 MG TAB PO PRN (22:14)
[2020-02-23] MEDS ORDERED: IOPAMIDOL CONTRAST (ORAL USE) VIAL PO PRN (22:21)
[2020-02-23] MEDS ORDERED: LEVOFLOXACIN 750MG-D5W PMX 750 MG in DEXTROSE/WATER 1 150ML.BAG IVPB STA (22:28)
[2020-02-24] MEDS: SODIUM CHLORIDE 0.9% 1,000 ML IV SCH ×2 (00:41→07:54)
[2020-02-24] MEDS: metroNIDAZOLE-NS PMX 500 MG in SALINE 1 100ML.BAG IVPB SCH ×4 (00:42→23:27)
[2020-02-24] MEDS: MORPHINE SULFATE 4 MG/ML SYRINGE IV PRN ×4 (04:11→20:21)
[2020-02-24] MEDS: PANTOPRAZOLE 40 MG/10 ML VIAL IV SCH ×2 (07:59→20:20)
--- NOTE | 2020-02-24 09:18 | P.GSCN ---
History of Present Illness Consult date: 02/24/20 Reason for Consult: Hematuria History of present illness: The patient is a 64-year-old male admitted last night for evaluation of a fever. He says that he has had intermittent fever associated with sweats and chills since 02/18. He says that his fever at that time was as high as 104. Since then his temperature has frequently been up to 102. He has had a chronic cough which has not changed recently. COVID-19 antigen test earlier this week was negative. He has noted some epigastric pain as well as nausea but no vomiting. He has chronic left lower quadrant and groin pain which is not changed recently. He denies any dysuria or gross hematuria. He says he usually voids every 2-4 hours during the day and once at night. This pattern of voiding has not changed over the last week. His urine flow is described as a 4 out of 10 this has also not changed. When seen in the emergency room last night he was noted to have a white blood count of 3100. BUN/creatinine were 19/0.9. Urinalysis showed 49 red cells 5 white cells and was negative for nitrite. Computed tomography scan of the abdomen and pelvis with IV contrast was obtained and showed no evidence of renal calculus, ureteral calculus or hydronephrosis. The bladder was unremarkable. The patient has no previous history of gross hematuria. He was suspected to have passed a kidney stone 8 years ago but never actually recovered a stone. He believes he may have had prostatitis in the distant past. The patient says that he is had a rash on his face which has been treated with minocycline and short courses of steroids twice in the last month or month and a half. At the present time the rash is improved. He has noted some increased pain in all his joints recently. Review of Systems - Constitutional Reports chills, Reports fever, Reports sweats - Cardiovascular Denies shortness of breath, Denies syncope - Respiratory Reports cough (chronic) - Gastrointestinal Reports as per HPI, Reports abdominal pain (epigastric), Reports heartburn, Denies change in bowel habits, Denies vomiting - Genitourinary Reports as per HPI - Integumentary Reports rash Past Medical History Past Medical History: Asthma, Chest Pain / Angina, GERD/Reflux, Hyperlipidemia, Hypertension, Myocardial Infarction (non Q-wave), Osteoarthritis (OA) Additional Past Medical History / Comment(s): . Last Myocardial Infarction Date:: 05/22/15 History of Any Multi-Drug Resistant Organisms: None Reported Past Surgical History: Cholecystectomy, Heart Catheterization With Stent, Hernia Repair (left inguinal w/mesh), Orthopedic Surgery (right shoulder) Additional Past Surgical History / Comment(s): deviated septum, rt shoulder rotator cuff, EGD, colonoscopy,lt inguinal hernia repair, vivien fundoplication, left carpal tunnel Past Anesthesia/Blood Transfusion Reactions: No Reported Reaction Date of Last Stent Placement:: 05-23-15 Past Psychological History: Anxiety Smoking Status: Former smoker Past Alcohol Use History: Occasional Past Drug Use History: Marijuana - Past Family History Sister(s) Family Medical History: Cancer (Blood cancer not determined to be leukemia or multiple myeloma) Mother Family Medical History: Chest Pain / Angina, Diabetes Mellitus Additional Family Medical History / Comment(s): age 84, heart problems Father Family Medical History: Chest Pain / Angina Additional Family Medical History / Comment(s): age 72 Medications and Allergies Home Medications Medication Instructions Recorded Confirmed Type Aspirin EC [Ecotrin Low Dose] 81 mg PO DAILY tablet. 05/24/15 02/24/20 Rx Acetaminophen/Diphenhydramine 1 tab PO HS PRN 10/10/16 02/24/20 History [Tylenol PM 500-25mg] Rosuvastatin Calcium [Crestor] 20 mg PO WESA 10/27/18 02/24/20 History ALPRAZolam [Xanax] 0.25 mg PO BID PRN 02/24/20 02/24/20 History Albuterol Inhaler [Ventolin Hfa 2 puff INHALATION RT-Q4H PRN 02/24/20 02/24/20 History Inhaler] Minocycline [Minocin] 50 mg PO DAILY 02/24/20 02/24/20 History Pantoprazole [Protonix] 40 mg PO DAILY 02/24/20 02/24/20 History amLODIPine BES/OLMESARTAN MED 1 tab PO DAILY 02/24/20 02/24/20 History [amLODIPine BES/OLMESARTAN MED 5-20 mg] metroNIDAZOLE 0.75% CREAM 1 applic TOPICAL BID PRN 02/24/20 02/24/20 History [Metrocream] Allergies Allergy/AdvReac Type Severity Reaction Status Date / Time clindamycin Allergy Rash/Hives Verified 02/24/20 08:31 Penicillins Allergy Rash/Hives Verified 02/24/20 08:31 Surgical - Exam Vital Signs Temp Pulse Resp BP Pulse Ox 100.6 F H 60 18 138/69 99 02/23/20 18:58 02/23/20 18:58 02/23/20 18:58 02/23/20 18:58 02/23/20 18:58 - General well developed, well nourished, no distress - ENT no hearing loss - Neck no masses, no lymphadectomy - Respiratory normal respiratory effort - Abdomen Abdomen: soft, non tender, no organomegaly Hernia: none - Genitourinary normal penis with no external lesions, testicles non-tender - Rectum Rectum: other (external hemorrhoids. Prostate is 1-2+ enlarged, benign to palpation and non-tender) - Integumentary no rash - Psychiatric oriented to time, oriented to person, oriented to place Results - Labs 02/23/20 20:14 02/23/20 20:14 Abnormal Lab Results - Last 24 Hours (Table) 02/23/20 02/23/20 02/23/20 Range/Units 20:14 20:14 20:14 WBC 3.1 L (3.8-10.6) k/uL Plt Count 109 L (150-450) k/uL Lymphocytes # 0.4 L (1.0-4.8) k/uL Sodium 133 L (137-145) mmol/L Glucose 102 H (74-99) mg/dL Urine Protein Trace H (Negative) Urine Blood Moderate H (Negative) Urine RBC 49 H (0-5) /hpf Urine Bacteria Rare H (None) /hpf Urine Mucus Rare H (None) /hpf Diabetes panel 02/23/20 Range/Units 20:14 Sodium 133 L (137-145) mmol/L Potassium 4.2 (3.5-5.1) mmol/L Chloride 99 (98-107) mmol/L Carbon Dioxide 27 (22-30) mmol/L BUN 19 (9-20) mg/dL Creatinine 0.90 (0.66-1.25) mg/dL Glucose 102 H (74-99) mg/dL Calcium 9.0 (8.4-10.2) mg/dL AST 32 (17-59) U/L ALT 22 (4-49) U/L Alkaline Phosphatase 57 (38-126) U/L Total Protein 6.3 (6.3-8.2) g/dL Albumin 3.5 (3.5-5.0) g/dL Calcium panel 02/23/20 Range/Units 20:14 Calcium 9.0 (8.4-10.2) mg/dL Albumin 3.5 (3.5-5.0) g/dL Pituitary panel 02/23/20 Range/Units 20:14 Sodium 133 L (137-145) mmol/L Potassium 4.2 (3.5-5.1) mmol/L Chloride 99 (98-107) mmol/L Carbon Dioxide 27 (22-30) mmol/L BUN 19 (9-20) mg/dL Creatinine 0.90 (0.66-1.25) mg/dL Glucose 102 H (74-99) mg/dL Calcium 9.0 (8.4-10.2) mg/dL Adrenal panel 02/23/20 Range/Units 20:14 Sodium 133 L (137-145) mmol/L Potassium 4.2 (3.5-5.1) mmol/L Chloride 99 (98-107) mmol/L Carbon Dioxide 27 (22-30) mmol/L BUN 19 (9-20) mg/dL Creatinine 0.90 (0.66-1.25) mg/dL Glucose 102 H (74-99) mg/dL Calcium 9.0 (8.4-10.2) mg/dL Total Bilirubin 0.5 (0.2-1.3) mg/dL AST 32 (17-59) U/L ALT 22 (4-49) U/L Alkaline Phosphatase 57 (38-126) U/L Total Protein 6.3 (6.3-8.2) g/dL Albumin 3.5 (3.5-5.0) g/dL Assessment and Plan (1) Hematuria Narrative/Plan: The source of the patient's fever and microscopic hematuria is not clear. The patient's urinalysis does not suggest a urinary tract infection and he had no symptoms suggestive of bladder or prostate irritation. I reviewed his computed tomography scan and there is no evidence of renal or ureteral calculus. The combination of fever, arthralgias, rash and microscopic hematuria could be related to a drug-induced autoimmune disorder such as lupus related to use of minocycline. At least at this time further urologic evaluation does not appear to be necessary. I would suggest a follow-up urinalysis in several weeks to ensure that the hematuria has resolved however. Current Visit: Yes Status: Acute Code(s): R31.9 - HEMATURIA, UNSPECIFIED SNOMED Code(s): 57468000
--- NOTE | 2020-02-24 09:32 | P.HPIM ---
History of Present Illness H&P Date: 02/24/20 Chief Complaint: Severe abdominal pain, pancytopenia, possible gastritis, fever, CAD 64-year-old male one of my office patient of known for the last 20 years with past medical history of asthma, CAD post non-ST DC post PCI and stent placement a few years ago, history of hypertension and hyperlipidemia who is known to have a chronic abdominal pain from mesh was placed with hernia repair long time ago. Patient was in the office 6 weeks ago with severe rosacea and facial dermatitis was treated with doxycycline, MetroCream and prednisone for 12 days. He has relapsed on his rash had the treatment on one more time and has a slight improvement. He called the office 3 days ago with concern of fever and mild abdominal discomfort with fatigue with suspicion for Covid 19. Patient was referred for testing as an outpatient his test ended up coming negative. Patient presented to the emergency department at [facility] last night with complaint of severe abdominal pain nausea of fatigue fever and chills with significant hematuria and black stool from earlier. With his vague non-explain symptoms surprisingly his blood work shows leukopenia and thrombocytopenia with urine shows hematuria with a few white blood cell and no sign of urinary tract infection at this time. CAT scan of the abdomen and pelvis was performed did not show any major abnormality at the time. Patient was started on pantoprazole IV, hydration, Flagyl IV and was admitted to the hospital to consult urology and gastroenterology. Review of Systems CONSTITUTIONAL: Well-developed no acute respiratory distress. Still have significant rosacea rash on the facial area. EYES: No icterus sclerae, no conjunctivitis. EARS, NOSE, MOUTH, THROAT, and FACE: No sore throat, lymphadenopathy, carotid bruits or deformity. RESPIRATORY: No SOB cough or wheezes. History of asthma with no wheezes. CARDIOVASCULAR: No CP, Palpitation, PND, Orthopnea, or angina. GASTROINTESTINAL: Significant abdominal pain with nausea slight discomfort in the midepigastric and left upper quadrant area. GENITOURINARY: Hematuria with no sign of kidney stone and no sign of infection. INTEGUMENT/BREAST: Negative for any muscular injury with mild osteoarthritis.. HEMATOLOGIC/LYMPHATIC: Negative for bleed or purpura. MUSCULOSKELTAL: Negative for Myalgia or arthralgia. NEURLOGICAL: No LOC, Sz or syncope, blurred vision dizziness or abnormality.. BEHAVIORAL/PSYCH: Negative. ENDOCRINE: Negative. Past Medical History Past Medical History: Asthma, Chest Pain / Angina, GERD/Reflux, Hyperlipidemia, Hypertension, Myocardial Infarction (non Q-wave), Osteoarthritis (OA) Additional Past Medical History / Comment(s): . Last Myocardial Infarction Date:: 05/22/15 History of Any Multi-Drug Resistant Organisms: None Reported Past Surgical History: Cholecystectomy, Heart Catheterization With Stent, Hernia Repair (left inguinal w/mesh), Orthopedic Surgery (right shoulder) Additional Past Surgical History / Comment(s): deviated septum, rt shoulder rotator cuff, EGD, colonoscopy,lt inguinal hernia repair, vivien fundoplication, left carpal tunnel Past Anesthesia/Blood Transfusion Reactions: No Reported Reaction Date of Last Stent Placement:: 05-23-15 Past Psychological History: Anxiety Smoking Status: Former smoker Past Alcohol Use History: Occasional Past Drug Use History: Marijuana - Past Family History Sister(s) Family Medical History: Cancer (Blood cancer not determined to be leukemia or multiple myeloma) Mother Family Medical History: Chest Pain / Angina, Diabetes Mellitus Additional Family Medical History / Comment(s): age 84, heart problems Father Family Medical History: Chest Pain / Angina Additional Family Medical History / Comment(s): age 72 Medications and Allergies Home Medications Medication Instructions Recorded Confirmed Type Aspirin EC [Ecotrin Low Dose] 81 mg PO DAILY tablet. 05/24/15 02/24/20 Rx Acetaminophen/Diphenhydramine 1 tab PO HS PRN 10/10/16 02/24/20 History [Tylenol PM 500-25mg] Rosuvastatin Calcium [Crestor] 20 mg PO WESA 10/27/18 02/24/20 History ALPRAZolam [Xanax] 0.25 mg PO BID PRN 02/24/20 02/24/20 History Albuterol Inhaler [Ventolin Hfa 2 puff INHALATION RT-Q4H PRN 02/24/20 02/24/20 H istory Inhaler] Minocycline [Minocin] 50 mg PO DAILY 02/24/20 02/24/20 History Pantoprazole [Protonix] 40 mg PO DAILY 02/24/20 02/24/20 History amLODIPine BES/OLMESARTAN MED 1 tab PO DAILY 02/24/20 02/24/20 History [amLODIPine BES/OLMESARTAN MED 5-20 mg] metroNIDAZOLE 0.75% CREAM 1 applic TOPICAL BID PRN 02/24/20 02/24/20 History [Metrocream] Allergies Allergy/AdvReac Type Severity Reaction Status Date / Time clindamycin Allergy Rash/Hives Verified 02/24/20 08:31 Penicillins Allergy Rash/Hives Verified 02/24/20 08:31 Physical Exam Vitals: Vital Signs Temp Pulse Pulse Resp BP BP Pulse Ox 02/24/20 07:00 98.5 F 56 L 16 131/63 98 02/24/20 00:00 98.4 F 57 L 16 133/69 97 02/23/20 22:14 98.6 F 63 18 138/65 96 02/23/20 20:25 69 18 154/76 100 02/23/20 18:58 100.6 F H 60 18 138/69 99 Intake and Output 02/23/20 02/24/20 02/24/20 22:59 06:59 14:59 Intake Total 850 Balance 850 Intake: Intake, IV Titration 850 Amount Levofloxacin 750Mg-D5w 150 Pmx 750 mg In Dextrose/ Water 1 150ml.bag @ 100 mls/hr IVPB ONCE [facility] Rx#: [id number] Sodium Chloride 0.9% 1, 600 000 ml @ 75 mls/hr IV . [id number] [facility] Rx#:[id number] metroNIDAZOLE-NS PMX 500 100 mg In Saline 1 100ml.bag @ 100 mls/hr IVPB Q8H [facility] Rx#:[id number] Other: Voiding Method Toilet Toilet # Voids 1 Weight 72.575 kg 72.575 kg General Appearance: Alert, cooperative, no distress, appears stated age. Significant rosacea and his facial area. Neck HEENT: Supple, no lymphadenopathy, no thyroid enlargement, no carotid bruits. Lungs: Clear to auscultation without crackles or wheezes no rhonchi, no deformity. Chest Wall: Chest wall normal expansion with deep inspiration no tenderness and no deformity was found on exam, no costochondral pain or discomfort. Heart: Regular rate and rhythm, S1, S2 normal, no murmur, rub or gallop. Back: Symmetric, no curvature, ROM normal, no CVA tenderness. Abdomen: Soft positive bowel sounds slight discomfort in the midepigastric and left upper quadrant along with mid abdominal and mid lower abdominal discomfort with tenderness no rebound or rigidity. Extremities: Extremities normal, atraumatic, no cyanosis or edema. Mild flaky rash looks like reaction to medication on the left upper extremity. Pulses: 2+ and symmetric. Skin: Skin color, texture, tugor normal, no rashes or lesions. Neurologic: Alert oriented x3 cranial nerves II through XII intact, no motor deficit, no abnormal balance or gait. Results CBC & Chem 7: 02/23/20 20:14 02/23/20 20:14 Labs: Abnormal Lab Results - Last 24 Hours (Table) 02/23/20 02/23/20 02/23/20 Range/Units 20:14 20:14 20:14 WBC 3.1 L (3.8-10.6) k/uL Plt Count 109 L (150-450) k/uL Lymphocytes # 0.4 L (1.0-4.8) k/uL Sodium 133 L (137-145) mmol/L Glucose 102 H (74-99) mg/dL Urine Protein Trace H (Negative) Urine Blood Moderate H (Negative) Urine RBC 49 H (0-5) /hpf Urine Bacteria Rare H (None) /hpf Urine Mucus Rare H (None) /hpf Thrombosis Risk Factor Assmnt - DVT/VTE Prophylaxis DVT/VTE Prophylaxis: Mechanical Prophylaxis ordered - Choose All That Apply Any of the Below Risk Factors Present?: Yes Each Factor Represents 1 point: Medical pt on bed rest Other Risk Factors: Yes Each Risk Factor Represents 2 Points: Age 61-74 years Other congenital or acquired thrombophilia - If yes, enter type in comment: No Thrombosis Risk Factor Assessment Total Risk Factor Score: 3 Thrombosis Risk Factor Assessment Level: Moderate Risk Assessment and Plan Assessment: 1 severe abdominal pain: Not clear etiology at this point with the almost pancytopenia along with hematuria not a clear whether patient has any type of viral gastroenteritis causing hemolytic anemia and suppression on the bone marrow. Continue conservative management with hydration blood culture was requested will continue consultation with urology and gastro-. 2 leukopenia and thrombocytopenia: Most likely reactive to either medication which could be doxycycline at this point or reaction to viral infection patient had an causing her gastroenteritis, continue supportive care and repeat CBC in the next 24 hours. 3 severe gastroenteritis and gastritis: Could be viral or could be from doxycycline with mild symptom of stomatitis esophagitis and gastritis patient will benefit greatly from doing an EGD and biopsy if finding suspicious to be doxycycline related that could be reason why the bone marrow suppressed and the reason why he is having fever or chills and leukopenia also biopsy would be appreciated and culture to see if we have any infection or candidiasis. 4 hematuria: Patient will be seen urology exclude the possibility of infection versus stone versus any finding in the bladder area if this is mostly hemolytic hematuria might be clear on its own if not patient might benefit from doing cystoscopy eventually and maybe thinking to repeat the CAT scan one more time. 5 CAD post PCI and stent placement has been doing well seen cardiology regular basis. 6 hypertension: Patient remain on losartan and amlodipine. 7 hyperlipidemia: Remain on Crestor 20 mg a day. 8 severe GERD: Patient had Nisan fundoplication and still on omeprazole and regular basis. 9 severe rosacea: Has been on MetroCream along with minocycline, minocycline will be stopped for now. 10 GI prophylaxis: Continue pantoprazole. 11 DVT prophylaxis: Continue patient on knee-high JONG hose and early mobilization. CODE STATUS: Full code. Admit patient to the inpatient service for more than 2 night stay.
[2020-02-24 09:55] LABS: HCT 37.3 % (39.0-53.0); MCH 32.7 pg (25.0-35.0); MCHC 34.8 g/dL (31.0-37.0); MCV 93.8 fL (80.0-100.0); Mean Platelet Volume 6.8; RBC 3.97 m/uL (4.30-5.90); RDW 12.9 % (11.5-15.5)
[2020-02-24] MEDS ORDERED: ALBUTEROL HFA INHALER INHALATION PRN (10:27)
[2020-02-24] MEDS ORDERED: NON FORMULARY DRUG (Acetaminophen/Diphenhydramine [Tylenol Pm 500-25mg] 1 TAB) PO PRN (10:27)
[2020-02-24 10:47] LABS: Platelet Count 99 k/uL (150-450)
[2020-02-24] MEDS ORDERED: LIDOCAINE 1% INJ 10MG/ML (20 ML MDV) ONE (11:38)
[2020-02-24] MEDS ORDERED: PROPOFOL 10 MG/ML 20 ML VIAL IV ONE (11:38)
[2020-02-24] MEDS ORDERED: IV FLUID CONTINUATION 500 ML IV ONE (11:40)
--- NOTE | 2020-02-24 11:56 | P.PCN ---
Date of Procedure: 02/24/20 Procedure(s) Performed: BRIEF HISTORY: Patient is a 64-year-old, pleasant, white female admitted hospital with severe epigastric pain and fever chills for the last 1 week duration. He also had some dark stools for the last 2 days. His and scheduled for an upper endoscopy to evaluate further. PROCEDURE PERFORMED: Esophagogastroduodenoscopy with biopsy. PREOPERATIVE DIAGNOSIS: Epigastric pain and black-colored stools of 1 week duration. IV sedation per anesthesia. PROCEDURE: After informed consent was obtained, the patient was brought into the endoscopy unit. IV sedation was administered by Anesthesia under continuous monitoring. Initially the Olympus GIF-140 video endoscope was inserted into the mouth. Esophagus intubated without any difficulty. It was gradually advanced into the stomach and duodenum and carefully examined. The bulb and the second part of the duodenum appeared normal. The scope at this time was withdrawn to the stomach, adequately insufflated with air, and upon careful examination, mucosa of the antrum had mild patchy areas of erythema in the prepyloric area which was biopsied. No erosions or ulcerations identified. The, body, cardia and the fundus appeared normal. The scope was then withdrawn into the esophagus. The GE junction was located at 39 cm from the incisors. The esophagus appeared normal. There were no erosions or ulcerations seen and the patient tolerated the procedure well. IMPRESSION: 1. Mild antral gastritis. 2. No evidence of esophagitis or peptic ulcer disease. RECOMMENDATIONS: The findings of this examination were discussed with the patient. He was advised to follow with the biopsy results. He will continue with Protonix 40 mg daily. Diet will be be advanced as tolerated.
[2020-02-24] MEDS: LOSARTAN 50 MG TAB PO SCH (12:09)
[2020-02-24] MEDS: amLODIPine 5 MG TAB PO SCH (12:09)
--- NOTE | 2020-02-24 16:56 | CONS ---
CONSULTATION DATE OF CONSULTATION: 02/24/2020 REASON FOR CONSULTATION: Epigastric pain and dark-colored stool. HISTORY OF PRESENT ILLNESS: The patient is a 64-year-old pleasant white male who follows with Dr. Eduardo on an outpatient basis. He was diagnosed with severe rosacea and facial dermatitis towards the end of December and was seeing Dr. Eduardo on an outpatient basis and was treated with doxycycline as well as steroids for a couple of weeks. He did well in the beginning. He had recurrent symptoms and he was seen in the office 3 or 4 days ago because the patient started experiencing severe epigastric pain associated with nausea, fatigue, not feeling well, with low-grade fever. His fever at one point was 103, and two days ago it was 104. He became very concerned, was having some chills and around the same time noticed some black-colored stool. He became concerned and came into the emergency room and was subsequently admitted to the hospital for further evaluation. He did have a CT of the abdomen and pelvis done in the emergency room that did not show any acute pathology. He was started on IV Protonix as well as antibiotics, and we are consulted for possible endoscopy. The patient denies any prior history of peptic ulcer disease. He denies any recent NSAID use. He took some Aleve because of the fever that he was having for the last 8 days. He reports no significant change in his bowel habits. PAST MEDICAL HISTORY: His past medical history is significant for asthma, GERD, hypertension, hyperlipidemia, degenerative joint disease, coronary artery disease, status post LA in the past. PAST SURGICAL HISTORY: Cholecystectomy, hernia repair, cardiac catheterization, Tessa fundoplication in 2012, left inguinal hernia repair. MEDICATIONS: Medications at home include aspirin, Tylenol, Crestor, Xanax. Ventolin, Minocin, Protonix, amlodipine. ALLERGIES: PENICILLIN and CLINDAMYCIN. SOCIAL HISTORY: No smoking. No alcohol use. FAMILY HISTORY: Mother has diabetes mellitus and coronary artery disease. Father had chest pain and angina. Sister with some kind of cancer. REVIEW OF SYSTEMS: CARDIOPULMONARY: He denies any chest pain or shortness of breath. GENITOURINARY: Some hematuria. MUSCULOSKELETAL: Unremarkable. SKIN: Unremarkable. ENDOCRINE: Unremarkable. PSYCHIATRIC: Unremarkable. NEUROLOGY: Unremarkable. ENT/VISION: Unremarkable. CONSTITUTIONAL: Fever, chills for the last one week's duration. Weight loss of about 8 pounds. GI: As mentioned above. PHYSICAL EXAMINATION: He appears comfortable. No apparent distress. VITAL SIGNS: Stable. Blood pressure is 131/63, pulse rate 56, temperature 98.5. HEENT examination unremarkable. Conjunctivae pink. Sclerae anicteric. Oral cavity no lesions. NECK: No JVD or lymph node enlargement. CHEST: Clear to auscultation. HEART: Regular rate and rhythm. ABDOMEN: Soft. Bowel sounds are positive. There was tenderness in the epigastric area. Rest of the abdomen benign. No organomegaly. EXTREMITIES: No pedal edema. SKIN: No rashes. NEUROLOGIC: Alert and oriented x3. No focal deficits. LABS/IMAGING: WBC 3.1, hemoglobin 14.7, platelets 109, PTT and INR within normal limits. ALT, AST, T- bilirubin, alkaline phosphatase normal. Amylase and lipase are normal. Stool occult blood was positive. Urinalysis: urine blood moderate. CT of the abdomen and pelvis was unremarkable. IMPRESSION: 1. This is a patient who presented to the hospital with fever, chills and acute onset of severe epigastric pain associated with nausea and black-colored stools for the last two days. Hemoglobin stable at 13 g/dL. He has been taking Aleve for the fever for the last one week. Rule out peptic ulcer disease. 2. Mild thrombocytopenia and leukopenia, most likely reactive in nature. 3. Recent episode of rosacea, for which he was treated with antibiotics as well as steroids about 6 weeks ago. RECOMMENDATIONS: 1. Continue with Protonix 40 mg daily. 2. Keep him n.p.o. 3. Will proceed with an upper endoscopy today. Discussed with him risks, benefits and complications, and he is agreeable to it. Thank you for this consultation. MMODL / IJN: [id number] /
[2020-02-25] MEDS: MORPHINE SULFATE 4 MG/ML SYRINGE IV PRN (01:28)
[2020-02-25] MEDS: SODIUM CHLORIDE 0.9% 1,000 ML IV SCH (06:11)
[2020-02-25] MEDS: ALPRAZolam 0.25 MG TAB PO PRN (06:11)
[2020-02-25] MEDS: metroNIDAZOLE-NS PMX 500 MG in SALINE 1 100ML.BAG IVPB SCH ×3 (06:12→21:09)
[2020-02-25] MEDS: ONDANSETRON 4 MG/2 ML VIAL IVP PRN ×2 (06:13→23:27)
[2020-02-25 08:14] LABS: HCT 41.1 % (39.0-53.0); HGB 13.4 gm/dL (13.0-17.5); MCH 30.2 pg (25.0-35.0); MCHC 32.7 g/dL (31.0-37.0); MCV 92.4 fL (80.0-100.0); Mean Platelet Volume 6.9; Platelet Count 121 k/uL (150-450); RBC 4.45 m/uL (4.30-5.90); RDW 12.9 % (11.5-15.5); WBC 6.2 k/uL (3.8-10.6)
[2020-02-25 08:27] LABS: ALT 25 U/L (4-49); AST 39 U/L (17-59); African American GFR (CKD) >90 (>60 ml/min/1.73 sqM); Albumin 3.1 g/dL (3.5-5.0); Alkaline Phosphatase 51 U/L (38-126); Anion Gap 7 mmol/L; Blood Urea Nitrogen 10 mg/dL (9-20); Calcium 8.7 mg/dL (8.4-10.2); Carbon Dioxide 23 mmol/L (22-30); Chloride 101 mmol/L (98-107); Glucose 110 mg/dL (74-99); Non-African American GFR(CKD) >90 (>60 ml/min/1.73 sqM); Potassium 3.6 mmol/L (3.5-5.1); Sodium 131 mmol/L (137-145); Total Bilirubin 0.4 mg/dL (0.2-1.3); Total Protein 5.9 g/dL (6.3-8.2)
[2020-02-25] MEDS: amLODIPine 5 MG TAB PO SCH (08:31)
[2020-02-25] MEDS: LOSARTAN 50 MG TAB PO SCH (08:31)
[2020-02-25] MEDS: PANTOPRAZOLE 40 MG/10 ML VIAL IV SCH (08:31)
[2020-02-25] MEDS: SENNOSIDES-DOCUSATE SODIUM 1 EACH TAB PO SCH (08:42)
[2020-02-25] MEDS: LACTULOSE 20 GM/30 ML CUP PO SCH ×2 (08:42→21:09)
[2020-02-25] MEDS ORDERED: ATORVASTATIN 40 MG TAB PO SCH (09:00)
--- NOTE | 2020-02-25 09:24 | P.PN ---
Subjective Progress Note Date: 02/25/20 64-year-old male one of my office patient of known for the last 20 years with past medical history of asthma, CAD post non-ST CA post PCI and stent placement a few years ago, history of hypertension and hyperlipidemia who is known to have a chronic abdominal pain from mesh was placed with hernia repair long time ago. Patient was in the office 6 weeks ago with severe rosacea and facial dermatitis was treated with doxycycline, MetroCream and prednisone for 12 days. He has relapsed on his rash had the treatment on one more time and has a slight improvement. He called the office 3 days ago with concern of fever and mild abdominal discomfort with fatigue with suspicion for Covid 19. Patient was referred for testing as an outpatient his test ended up coming negative. Patient presented to the emergency department at [facility] last night with complaint of severe abdominal pain nausea of fatigue fever and chills with significant hematuria and black stool from earlier. With his vague non-explain symptoms surprisingly his blood work shows leukopenia and thrombocytopenia with urine shows hematuria with a few white blood cell and no sign of urinary tract infection at this time. CAT scan of the abdomen and pelvis was performed did not show any major abnormality at the time. Patient was started on pantoprazole IV, hydration, Flagyl IV and was admitted to the hospital to consult urology and gastroenterology. 02/24: Patient underwent EGD yesterday with Dr. Mac that revealed mild antral gastritis. No esophagitis or peptic ulcer disease was found. Recommendations for Protonix daily and diet could be advanced. His abdominal pain is improved today and he feels less sore to the epigastric region. Stool for occult blood was positive. He is complaining of bloating and constipation. Senokot and lactulose has been added. Patient is continued on ceftriaxone and Flagyl IV. Repeat blood work reveals improvement of his WBC count 6.2 as well as improvement of platelet count 121, hemoglobin 13.4. Sodium is 131, potassium 3.6, chloride 101, CO2 23, BUN 10 and creatinine 0.77, blood sugar 110. Liver function test are normal. Coronavirus testing not detected. Patient was also seen by Dr. nichols unclear etiology for hematuria and fever. No urinary tract infection. Possibility of drug-induced autoimmune disorder such as lupus related to minocycline as possibility. He recommended a repeat urinalysis in several weeks to ensure hematuria has resolved. We will recheck at [facility] - Vital Signs Vital signs: Vital Signs Temp 98.8 F 02/25/20 01:40 Pulse 67 02/25/20 01:40 Resp 18 02/25/20 04:15 BP 154/54 02/25/20 01:40 Pulse Ox 97 02/25/20 01:40 Intake & Output 02/24/20 02/25/20 02/25/20 18:59 06:59 18:59 Intake Total 100 100 Balance 100 100 Intake: IV 100 Oral 100 Other: Voiding Method Toilet Toilet # Voids 1 2 - Exam Review of Systems CONSTITUTIONAL: Well-developed no acute respiratory distress. Still have significant rosacea rash on the facial area. EYES: No icterus sclerae, no conjunctivitis. EARS, NOSE, MOUTH, THROAT, and FACE: No sore throat, lymphadenopathy, carotid bruits or deformity. RESPIRATORY: No SOB cough or wheezes. History of asthma with no wheezes. CARDIOVASCULAR: No CP, Palpitation, PND, Orthopnea, or angina. GASTROINTESTINAL: Improving abdominal pain with nausea slight discomfort in the midepigastric and left upper quadrant area, reports bloating, reports constipation. GENITOURINARY: Hematuria with no sign of kidney stone and no sign of infection. INTEGUMENT/BREAST: Negative for any muscular injury with mild osteoarthritis.. HEMATOLOGIC/LYMPHATIC: Negative for bleed or purpura. MUSCULOSKELTAL: Negative for Myalgia or arthralgia. NEURLOGICAL: No LOC, Sz or syncope, blurred vision dizziness or abnormality.. BEHAVIORAL/PSYCH: Negative. ENDOCRINE: Negative. Physical Examination General Appearance: Alert, cooperative, no distress, appears stated age. Significant rosacea and his facial area. No acute distress. Neck HEENT: Supple, no lymphadenopathy, no thyroid enlargement, no carotid bruit s. Lungs: Clear to auscultation without crackles or wheezes no rhonchi, no deformity. Chest Wall: Chest wall normal expansion with deep inspiration no tenderness and no deformity was found on exam, no costochondral pain or discomfort. Heart: Regular rate and rhythm, S1, S2 normal, no murmur, rub or gallop. Back: Symmetric, no curvature, ROM normal, no CVA tenderness. Abdomen: Abdominal distention, normal bowel sounds, mild epigastric and left upper quadrant discomfort and tenderness. Significantly improved from yesterday. No rebound or rigidity. Extremities: Extremities normal, atraumatic, no cyanosis or edema. Mild flaky rash looks like reaction to medication on the left upper extremity. Pulses: 2+ and symmetric. Skin: Skin color, texture, tugor normal, no rashes or lesions. Neurologic: Alert oriented x3 cranial nerves II through XII intact, no motor deficit, no abnormal balance or gait. - Labs CBC & Chem 7: 02/25/20 07:53 02/25/20 07:53 Labs: Abnormal Lab Results - Last 24 Hours (Table) 02/24/20 Range/Units 09:27 WBC 3.0 L (3.8-10.6) k/uL RBC 3.97 L (4.30-5.90) m/uL Hct 37.3 L (39.0-53.0) % Plt Count 99 L (150-450) k/uL Microbiology - Last 24 Hours (Table) 02/23/20 20:14 Blood Culture - Preliminary Blood No Growth after 24 hours Assessment and Plan Plan: 1 severe abdominal pain: Not clear etiology at this point with the almost pancytopenia along with hematuria not a clear whether patient has any type of viral gastroenteritis causing hemolytic anemia and suppression on the bone marrow. Continue conservative management with hydration blood culture was requested will continue consultation with urology and gastro-. Continue Flagyl. Continue Rocephin. 2 leukopenia and thrombocytopenia: Most likely reactive to either medication which could be doxycycline at this point or reaction to viral infection patient had an causing her gastroenteritis, continue supportive care and repeat CBC in the next 24 hours. 3 severe gastroenteritis and gastritis: Could be viral or could be from doxycycline with mild symptom of stomatitis esophagitis and gastritis patient will benefit greatly from doing an EGD and biopsy if finding suspicious to be doxycycline related that could be reason why the bone marrow suppressed and the reason why he is having fever or chills and leukopenia also biopsy would be appreciated and culture to see if we have any infection or candidiasis. 4 hematuria: Patient will be seen urology exclude the possibility of infection versus stone versus any finding in the bladder area if this is mostly hemolytic hematuria might be clear on its own if not patient might benefit from doing cystoscopy eventually and maybe thinking to repeat the CAT scan one more time. Recheck urinalysis in the morning for hematuria 5 CAD post PCI and stent placement has been doing well seen cardiology regular basis. 6 hypertension: Patient remain on losartan and amlodipine. 7 hyperlipidemia: Remain on Crestor 20 mg a day. 8 severe GERD: Patient had Nisan fundoplication and still on omeprazole and regular basis. 9 severe rosacea: Has been on MetroCream along with minocycline, minocycline will be stopped for now. 10 GI prophylaxis: Continue pantoprazole. 11 DVT prophylaxis: Continue patient on knee-high JONG hose and early mobilization. CODE STATUS: Full code. Discharge plan: Home on Thursday or Thursday Impression and plan of care have been directed as dictated by the signing physician. Miracle Alex nurse practitioner acting as scribe for signing physician.
[2020-02-25] MEDS: Acetaminophen-Codeine 300-30mg TAB PO PRN ×2 (12:09→18:03)
--- NOTE | 2020-02-25 13:47 | PN ---
PROGRESS NOTE DATE OF DICTATION: February 25, 2020 Patient is a 64-year-old pleasant white male admitted to the hospital with fever for the last 1 week duration. He has also had epigastric pain associated with some nausea but no emesis and he had some black tarry stool. Recently he was treated with antibiotics and steroids for facial dermatitis and rosacea. The patient underwent an upper endoscopy by me yesterday that showed evidence of mild gastritis but no evidence of esophagitis or peptic ulcer disease. Presently on Protonix 40 mg daily and this morning he is feeling much better. He had low-grade fever last night. Abdominal pain has improved. No nausea, no vomiting, and no further episodes of black tarry stools. PHYSICAL EXAMINATION: He appears comfortable. No apparent distress. VITAL SIGNS: Stable. Blood pressure is 155/69, pulse rate 62, temperature 98. HEENT examination unremarkable. Conjunctivae pink. Sclerae anicteric. Oral cavity no lesions. NECK: No JVD or lymph node enlargement. CHEST was clear auscultation. HEART: Regular rate and rhythm. ABDOMEN: Soft, it was nontender, nondistended. Bowel sounds are positive. No organomegaly. EXTREMITIES: No pedal edema. SKIN no rashes. NEUROLOGIC: Alert and oriented x3. No focal deficits. LABS: WBC 6.2, hemoglobin 13.4, platelets 121. Rest of the labs are within normal limits. IMPRESSION: 1. Epigastric pain with nausea, vomiting and dark-colored stools of 3-4 days duration. Recent upper endoscopy yesterday showed mild gastritis. No evidence of peptic ulcer disease. Presently on Protonix 40 mg daily and symptoms are gradually improving. 2. Low-grade fever for the last 1 week duration. Remains on empiric ceftriaxone as well as Flagyl and doing well. 3. Mild leukopenia and thrombocytopenia, improving. 4. History of coronary artery disease status post stent placement in the past. RECOMMENDATION: 1. Continue with Protonix 40 mg daily. 2. Advance diet as tolerated. 3. Continue empiric antibiotics. 4. Monitor labs closely. 5. We will follow with you. Thank you for this consultation. MMODL / IJN: [id number] /
[2020-02-25] MEDS: PANTOPRAZOLE 40 MG TABLET PO SCH (21:08)
[2020-02-26] MEDS: MORPHINE SULFATE 4 MG/ML SYRINGE IV PRN (01:01)
[2020-02-26] MEDS: metroNIDAZOLE-NS PMX 500 MG in SALINE 1 100ML.BAG IVPB SCH (06:06)
[2020-02-26] MEDS: SENNOSIDES-DOCUSATE SODIUM 1 EACH TAB PO SCH (07:26)
[2020-02-26] MEDS: LACTULOSE 20 GM/30 ML CUP PO SCH (07:26)
[2020-02-26] MEDS: LOSARTAN 50 MG TAB PO SCH (07:37)
[2020-02-26] MEDS: PANTOPRAZOLE 40 MG TABLET PO SCH (07:37)
[2020-02-26] MEDS: ALPRAZolam 0.25 MG TAB PO PRN (07:37)
[2020-02-26] MEDS: amLODIPine 5 MG TAB PO SCH (07:38)
[2020-02-26] MEDS: ONDANSETRON 4 MG/2 ML VIAL IVP PRN (07:38)
[2020-02-26] MEDS: Acetaminophen-Codeine 300-30mg TAB PO PRN (07:52)
[2020-02-26 08:24] VITALS: BP 143/67; PULSE 59; RESP 16; TEMP 98.2
[2020-02-26 09:06] LABS: HCT 39.1 % (39.0-53.0); HGB 13.2 gm/dL (13.0-17.5); MCH 31.8 pg (25.0-35.0); MCHC 33.8 g/dL (31.0-37.0); MCV 93.9 fL (80.0-100.0); Mean Platelet Volume 7.2; Platelet Count 138 k/uL (150-450); RBC 4.16 m/uL (4.30-5.90); RDW 12.9 % (11.5-15.5); WBC 6.4 k/uL (3.8-10.6)
[2020-02-26 09:20] LABS: ALT 88 U/L (4-49); AST 132 U/L (17-59); African American GFR (CKD) >90 (>60 ml/min/1.73 sqM); Albumin 3.2 g/dL (3.5-5.0); Alkaline Phosphatase 56 U/L (38-126); Anion Gap 6 mmol/L; Blood Urea Nitrogen 12 mg/dL (9-20); Calcium 8.7 mg/dL (8.4-10.2); Carbon Dioxide 28 mmol/L (22-30); Chloride 102 mmol/L (98-107); Glucose 101 mg/dL (74-99); Non-African American GFR(CKD) >90 (>60 ml/min/1.73 sqM); Potassium 3.5 mmol/L (3.5-5.1); Sodium 136 mmol/L (137-145); Total Bilirubin 0.4 mg/dL (0.2-1.3); Total Protein 5.9 g/dL (6.3-8.2)
[2020-02-26 09:48] LABS: Appearance,Urine Clear (Clear); Bilirubin,Urine Negative (Negative); Blood,Urine Small (Negative); Color,Urine Yellow; Glucose,Urine (UA) Negative (Negative); Ketones,Urine Trace (Negative); Leukocyte Esterase,Urine Trace (Negative); Mucus,Urine Occasional /hpf; Nitrite,Urine Negative (Negative); Protein,Urine Negative (Negative); RBC,Urine 7 /hpf (0-5); Specific Gravity,Urine 1.012 (1.001-1.035); Urobilinogen,Urine <2.0 mg/dL (<2.0); WBC,Urine 2 /hpf (0-5)
--- NOTE | 2020-02-26 10:06 | P.DS ---
Providers Date of admission: 02/25/20 08:28 Expected date of discharge: 02/26/20 Attending physician: Livia Onofre Consults: 02/23/20 22:27 Consult Physician Stat Consulting Provider: Deacon Contreras Consult Reason/Comments: hematuria Do you want consulting provider notified?: Yes, Notify in am 02/24/20 08:51 Consult Physician Routine Consulting Provider: Samantha Mac Consult Reason/Comments: EGD Do you want consulting provider notified?: Yes Primary care physician: [employer] [facility] Course: 64-year-old male one of my office patient of known for the last 20 years with past medical history of asthma, CAD post non-ST ND post PCI and stent placement a few years ago, history of hypertension and hyperlipidemia who is known to have a chronic abdominal pain from mesh was placed with hernia repair long time ago. Patient was in the office 6 weeks ago with severe rosacea and facial dermatitis was treated with doxycycline, MetroCream and prednisone for 12 days. He has relapsed on his rash had the treatment on one more time and has a slight improvement. He called the office 3 days ago with concern of fever and mild abdominal discomfort with fatigue with suspicion for Covid 19. Patient was referred for testing as an outpatient his test ended up coming negative. Patient presented to the emergency department at [facility] last night with complaint of severe abdominal pain nausea of fatigue fever and chills with significant hematuria and black stool from earlier. With his vague non-explain symptoms surprisingly his blood work shows leukopenia and thrombocytopenia with urine shows hematuria with a few white blood cell and no sign of urinary tract infection at this time. CAT scan of the abdomen and pelvis was performed did not show any major abnormality at the time. Patient was started on pantoprazole IV, hydration, Flagyl IV and was admitted to the hospital to consult urology and gastroenterology. 02/24: Patient underwent EGD yesterday with Dr. Mac that revealed mild antral gastritis. No esophagitis or peptic ulcer disease was found. Recommendations for Protonix daily and diet could be advanced. His abdominal pain is improved today and he feels less sore to the epigastric region. Stool for occult blood was positive. He is complaining of bloating and constipation. Senokot and lactulose has been added. Patient is continued on ceftriaxone and Flagyl IV. Repeat blood work reveals improvement of his WBC count 6.2 as well as improvement of platelet count 121, hemoglobin 13.4. Sodium is 131, potassium 3.6, chloride 101, CO2 23, BUN 10 and creatinine 0.77, blood sugar 110. Liver function test are normal. Coronavirus testing not detected. Patient was also seen by Dr. nichols unclear etiology for hematuria and fever. No urinary tract infection. Possibility of drug-induced autoimmune disorder such as lupus related to minocycline as possibility. He recommended a repeat urinalysis in several weeks to ensure hematuria has resolved. We will recheck at 02/25: Patient states that he had a rough night because he did have significant amount of stool and had an accident and was embarrassed. Abdominal pain is improved again. No fever or chills, no nausea or vomiting. Repeat blood work today reveals a hemoglobin of 13.2, WBC 6.4, platelet count 138. Sodium is 136, BUN 12 and creatinine 0.77. AST is 132 and ALT 88. Repeat urinalysis reveals trace ketones, small blood, leukoesterase trace. We will plan to discharge patient home today and he has been instructed to follow-up in the office on Thursday or Thursday of this week. Patient will be discharged home in stable condition. Discharge diagnoses: 1 severe abdominal pain of unclear etiology possible viral gastroenteritis. 2 leukopenia and thrombocytopenia most likely reactive to either medication which could be doxycycline at this point or reaction to viral infection causing bone marrow suppression 3 severe gastroenteritis and gastritis 4 hematuria of unclear etiology 5 CAD post PCI and stent placement 6 hypertension 7 hyperlipidemia 8 severe GERD 9 severe rosacea 10 COVID-19 infection not present Discharge plan: Home on Thursday or Thursday Impression and plan of care have been directed as dictated by the signing physician. Miracle Alex nurse practitioner acting as scribe for signing physician. Patient Condition at Discharge: Good Plan - Discharge Summary Discharge Rx Participant: No New Discharge Prescriptions: New metroNIDAZOLE [Flagyl] 500 mg PO Q8HR #21 tab Continue Aspirin EC [Ecotrin Low Dose] 81 mg PO DAILY tablet. Acetaminophen/Diphenhydramine [Tylenol PM 500-25mg] 1 tab PO HS PRN PRN Reason: SLEEP,PAIN Rosuvastatin Calcium [Crestor] 20 mg PO WESA amLODIPine BES/OLMESARTAN MED [amLODIPine BES/OLMESARTAN MED 5-20 mg] 1 tab PO DAILY ALPRAZolam [Xanax] 0.25 mg PO BID PRN PRN Reason: Anxiety Pantoprazole [Protonix] 40 mg PO DAILY Albuterol Inhaler [Ventolin Hfa Inhaler] 2 puff INHALATION RT-Q4H PRN PRN Reason: Shortness Of Breath Discontinued Minocycline [Minocin] 50 mg PO DAILY metroNIDAZOLE 0.75% CREAM [Metrocream] 1 applic TOPICAL BID PRN PRN Reason: FACE Discharge Medication List Aspirin EC [Ecotrin Low Dose] 81 mg PO DAILY tablet. 05/24/15 [Rx] Acetaminophen/Diphenhydramine [Tylenol PM 500-25mg] 1 tab PO HS PRN 10/10/16 [History] Rosuvastatin Calcium [Crestor] 20 mg PO WESA 10/27/18 [History] ALPRAZolam [Xanax] 0.25 mg PO BID PRN 02/24/20 [History] Albuterol Inhaler [Ventolin Hfa Inhaler] 2 puff INHALATION RT-Q4H PRN 02/24/20 [History] Pantoprazole [Protonix] 40 mg PO DAILY 02/24/20 [History] amLODIPine BES/OLMESARTAN MED [amLODIPine BES/OLMESARTAN MED 5-20 mg] 1 tab PO DAILY 02/24/20 [History] metroNIDAZOLE [Flagyl] 500 mg PO Q8HR #21 tab 02/26/20 [Rx] Follow up Appointment(s)/Referral(s): Rafat Eduardo MD [Primary Care Provider] - 1-2 days ( or Thursday ) Discharge Disposition: HOME SELF-CARE
[2020-02-26] MEDS ORDERED: metroNIDAZOLE 500 MG TAB PO SCH (10:30)
--- NOTE | 2020-02-26 16:00 | PN ---
PROGRESS NOTE DATE OF SERVICE: 02/26/2020 The patient is a 64-year-old pleasant white male admitted to hospital with low-grade fever, epigastric pain, nausea, vomiting for the last few days duration. He underwent an upper endoscopy 2 days ago that showed mild gastritis. The patient on Protonix 40 mg daily. Today he is doing much better. He had some epigastric discomfort after having his breakfast this morning that has since resolved. He reports no nausea or vomiting. PHYSICAL EXAMINATION: He appears comfortable. No apparent distress. Vital signs stable. Blood pressure 142/67, pulse rate 59, temperature 98.8. HEENT examination unremarkable. Conjunctivae pink. Sclerae anicteric. Oral cavity no lesions. NECK no JVD or lymph node enlargement. CHEST was clear to auscultation. HEART: Regular rate and rhythm. ABDOMEN: Soft, bowel sounds are positive. No organomegaly. EXTREMITIES: No pedal edema. SKIN no rashes. NEUROLOGIC: Alert and oriented x3. No focal deficits. LABS: WBC 6.4, hemoglobin 13.2, platelets 138. Rest of the labs are within normal limits. AST and ALT were elevated at 132 and 188 today. Yesterday they were within normal limits. IMPRESSION: 1. Epigastric pain associated with nausea and vomiting status post EGD 2 days ago that showed mild gastritis, on Protonix 40 mg daily and doing better. 2. Low-grade fever, on empiric antibiotics and fever, resolved. 3. Mild elevation of serum transaminases which were completely normal yesterday, could be most likely related to medication induced hepatitis. RECOMMENDATIONS: Patient has already been discharged home today. He can have his LFTs monitored on an outpatient basis and if they are elevated, he can follow up in the office in 2 weeks. Thank you for this consultation. MMODL / IJN: [id number] /
== END 2020-02-26 11:23 | disposition home or self-care (01) | DRG 392 ==
LOC: EC 18:55 → INTOOBSV 22:29 → 4SSUR 22:29 → OBSVTOIN 02-25 08:28
PROVIDERS: ADMIT Family Medicine; ATTEND Family Medicine
PROC: 0DB68ZX Excision of Stomach, Via Natural or Artificial Opening Endoscopic, Diagnostic (ICD-10-PCS; principal; 2020-02-24 07:50)
DX: A08.4 Viral intestinal infection, unspecified (principal); D70.8 Other neutropenia; D69.59 Other secondary thrombocytopenia; E78.5 Hyperlipidemia, unspecified; F41.9 Anxiety disorder, unspecified; I10 Essential (primary) hypertension; I25.10 Atherosclerotic heart disease of native coronary artery without angina pectoris; I25.2 Old myocardial infarction; J45.909 Unspecified asthma, uncomplicated; Z20.828 Contact with and (suspected) exposure to other viral communicable diseases; K21.9 Gastro-esophageal reflux disease without esophagitis; K29.70 Gastritis, unspecified, without bleeding; K59.00 Constipation, unspecified; L71.9 Rosacea, unspecified; R31.29 Other microscopic hematuria; G89.29 Other chronic pain; M19.90 Unspecified osteoarthritis, unspecified site; R05 Cough; T36.4X5A Adverse effect of tetracyclines, initial encounter; Z79.82 Long term (current) use of aspirin; Z79.899 Other long term (current) drug therapy; Z95.5 Presence of coronary angioplasty implant and graft; Z87.442 Personal history of urinary calculi; Z87.891 Personal history of nicotine dependence; Z90.49 Acquired absence of other specified parts of digestive tract; Z80.52 Family history of malignant neoplasm of bladder; Z83.3 Family history of diabetes mellitus
CPT/HCPCS: 36415; 43239; 74177; 80053; 81001; 82150; 82272; 83605; 83690; 85025; 85027; 85610; 85730; 87040; 88305; 96361; 96374; 96375; 99285

== ENCOUNTER 2021-05-01 10:34 | Emergency (ER) | payer BC ==
[2021-05-01 10:41] VITALS: TEMP 98
[2021-05-01] MEDS ORDERED: IPRATROPIUM-ALBUTEROL 3 ML NEB INHALATION STA (10:59)
[2021-05-01] MEDS ORDERED: SODIUM CHLORIDE 0.9% 1,000 ML IV STA (10:59)
[2021-05-01 11:07] VITALS: RESP 20
--- NOTE | 2021-05-01 11:19 | ED ---
SOB HPI - General Chief Complaint: Shortness of Breath Stated Complaint: SOB/Upper Back Pain Time Seen by Provider: 05/01/21 10:42 Source: patient, RN notes reviewed Mode of arrival: ambulatory Limitations: no limitations - History of Present Illness Initial Comments: is a 65-year-old male who is status post a four-way coronary artery bypass 2 weeks ago who presents with complaints of shortness of breath and difficulty breathing. He states is better now that was earlier today. He normally walks mile a day but today couldn't. Denies any cough or phlegm production fevers chills or sweats no problems with the surgery thus far he was sent in after consultation with his surgical team concern for PE. MD Complaint: shortness of breath - Related Data Home Medications Medication Instructions Recorded Confirmed Acetaminophen/Diphenhydramine 1 tab PO HS PRN 10/10/16 02/24/20 [Tylenol PM 500-25mg] Rosuvastatin Calcium [Crestor] 20 mg PO WESA 10/27/18 02/24/20 ALPRAZolam [Xanax] 0.25 mg PO BID PRN 02/24/20 02/24/20 Albuterol Inhaler [Ventolin Hfa 2 puff INHALATION RT-Q4H PRN 02/24/20 02/24/20 Inhaler] Pantoprazole [Protonix] 40 mg PO DAILY 02/24/20 02/24/20 amLODIPine BES/OLMESARTAN MED 1 tab PO DAILY 02/24/20 02/24/20 [amLODIPine BES/OLMESARTAN MED 5-20 mg] Previous Rx's Medication Instructions Recorded Aspirin EC [Ecotrin Low Dose] 81 mg PO DAILY tablet. 05/24/15 metroNIDAZOLE [Flagyl] 500 mg PO Q8HR #21 tab 02/26/20 Ipratropium/Albuterol Sulfate 2 puff INHALATION QID #1 inhaler 05/01/21 [Combivent Respimat Inhaler] Allergies Allergy/AdvReac Type Severity Reaction Status Date / Time clindamycin Allergy Rash/Hives Verified 05/01/21 10:41 Penicillins Allergy Rash/Hives Verified 05/01/21 10:41 Review of Systems ROS Statement: Those systems with pertinent positive or pertinent negative responses have been documented in the HPI. ROS Other: All systems not noted in ROS Statement are negative. Past Medical History Past Medical History: Asthma, Chest Pain / Angina, GERD/Reflux, Hyperlipidemia, Hypertension, Myocardial Infarction (non Q-wave), Osteoarthritis (OA) Additional Past Medical History / Comment(s): . Last Myocardial Infarction Date:: 05/22/15 History of Any Multi-Drug Resistant Organisms: None Reported Past Surgical History: Cholecystectomy, Coronary Bypass/CABG, Heart Catheterization With Stent, Hernia Repair, Orthopedic Surgery Additional Past Surgical History / Comment(s): deviated septum, rt shoulder rotator cuff, EGD, colonoscopy,lt inguinal hernia repair, vivien fundoplication, left carpal tunnel, CABG 04/15/2021 Past Anesthesia/Blood Transfusion Reactions: No Reported Reaction Date of Last Stent Placement:: 05-23-15 Past Psychological History: Anxiety Past Alcohol Use History: Occasional Past Drug Use History: Marijuana - Past Family History Sister(s) Family Medical History: Cancer (Blood cancer not determined to be leukemia or multiple myeloma) Mother Family Medical History: Chest Pain / Angina, Diabetes Mellitus Additional Family Medical History / Comment(s): age 84, heart problems Father Family Medical History: Chest Pain / Angina Additional Family Medical History / Comment(s): age 72 General Exam - General Exam Comments Initial Comments: Is a well-developed asthenic appearing male who is awake alert oriented 3 Limitations: no limitations General appearance: alert, in no apparent distress Head exam: Present: atraumatic, normocephalic, normal inspection Eye exam: Present: normal appearance, PERRL, EOMI. Absent: scleral icterus, conjunctival injection, periorbital swelling ENT exam: Present: normal exam, mucous membranes moist Neck exam: Present: normal inspection, full ROM, other (No stridor JVD or bruits). Absent: tenderness, meningismus, lymphadenopathy Respiratory exam: Present: decreased breath sounds, other (Healing mid moon otomy scar no evidence of any dehiscence or infection drainage.). Absent: respiratory distress, wheezes, rales, rhonchi, stridor Cardiovascular Exam: Present: regular rate, normal rhythm, normal heart sounds. Absent: systolic murmur, diastolic murmur, rubs, gallop, clicks GI/Abdominal exam: Present: soft, normal bowel sounds. Absent: distended, tenderness, guarding, rebound, rigid Extremities exam: Present: normal inspection, full ROM, normal capillary refill. Absent: tenderness, pedal edema, joint swelling, calf tenderness Back exam: Present: normal inspection Neurological exam: Present: alert, oriented X3, CN II-XII intact Psychiatric exam: Present: normal affect, normal mood Skin exam: Present: warm, dry, intact, normal color. Absent: rash Course Vital Signs 05/01/21 05/01/21 05/01/21 10:37 10:50 11:32 Temperature 98 F Pulse Rate 56 L 56 L 51 L Respiratory 24 20 Rate Blood Pressure 121/67 100/56 O2 Sat by Pulse 100 100 Oximetry 05/01/21 05/01/21 05/01/21 11:40 11:45 13:04 Temperature Pulse Rate 54 L 52 L 58 L Respiratory 20 20 Rate Blood Pressure 97/56 108/51 O2 Sat by Pulse 99 99 Oximetry Medical Decision Making - Medical Decision Making Reevaluation patient reveals increased aeration no evidence of a basilar abnormalities on auscultation. I did have one discussed with the patient has regarding the findings the presentation is consistent with bronchospasm. Patient again was a former smoker many years ago. He currently does use pro-air this will be switched to a Combivent. He is a follow-up with his doctor and return when necessary - Lab Data Result diagrams: 05/01/21 11:07 05/01/21 11:07 Lab Results 05/01/21 05/01/21 05/01/21 Range/Units 11:07 11:07 11:07 WBC 9.0 (3.8-10.6) k/uL RBC 4.10 L (4.30-5.90) m/uL Hgb 12.8 L (13.0-17.5) gm/dL Hct 38.6 L (39.0-53.0) % MCV 94.0 (80.0-100.0) fL MCH 31.2 (25.0-35.0) pg MCHC 33.2 (31.0-37.0) g/dL RDW 13.9 (11.5-15.5) % Plt Count 600 H (150-450) k/uL MPV 7.1 Neutrophils % 70 % Lymphocytes % 10 % Monocytes % 6 % Eosinophils % 12 % Basophils % 0 % Neutrophils # 6.3 (1.3-7.7) k/uL Lymphocytes # 0.9 L (1.0-4.8) k/uL Monocytes # 0.6 (0-1.0) k/uL Eosinophils # 1.1 H (0-0.7) k/uL Basophils # 0.0 (0-0.2) k/uL Poikilocytosis Slight PT (9.0-12.0) sec INR (<1.2) APTT (22.0-30.0) sec D-Dimer (<0.60) mg/L FEU Sodium 137 (137-145) mmol/L Potassium 4.7 (3.5-5.1) mmol/L Chloride 106 (98-107) mmol/L Carbon Dioxide 20 L (22-30) mmol/L Anion Gap 11 mmol/L BUN 22 H (9-20) mg/dL Creatinine 0.82 (0.66-1.25) mg/dL Est GFR (CKD-EPI)AfAm >90 (>60 ml/min/1.73 sqM) Est GFR (CKD-EPI)NonAf >90 (>60 ml/min/1.73 sqM) Glucose 100 H (74-99) mg/dL Plasma Lactic Acid Jose 1.8 (0.7-2.0) mmol/L Calcium 10.5 H (8.4-10.2) mg/dL Magnesium 1.8 (1.6-2.3) mg/dL Total Bilirubin 0.4 (0.2-1.3) mg/dL AST 37 (17-59) U/L ALT 34 (4-49) U/L Alkaline Phosphatase 69 (38-126) U/L Creatine Kinase 60 (55-170) U/L Troponin I (0.000-0.034) ng/mL NT-Pro-B Natriuret Pep pg/mL Total Protein 6.7 (6.3-8.2) g/dL Albumin 4.0 (3.5-5.0) g/dL 05/01/21 05/01/21 05/01/21 Range/Units 11:07 11:07 12:19 WBC (3.8-10.6) k/uL RBC (4.30-5.90) m/uL Hgb (13.0-17.5) gm/dL Hct (39.0-53.0) % MCV (80.0-100.0) fL MCH (25.0-35.0) pg MCHC (31.0-37.0) g/dL RDW (11.5-15.5) % Plt Count (150-450) k/uL MPV Neutrophils % % Lymphocytes % % Monocytes % % Eosinophils % % Basophils % % Neutrophils # (1.3-7.7) k/uL Lymphocytes # (1.0-4.8) k/uL Monocytes # (0-1.0) k/uL Eosinophils # (0-0.7) k/uL Basophils # (0-0.2) k/uL Poikilocytosis PT 11.2 (9.0-12.0) sec INR 1.1 (<1.2) APTT 21.5 L (22.0-30.0) sec D-Dimer 2.91 H (<0.60) mg/L FEU Sodium (137-145) mmol/L Potassium (3.5-5.1) mmol/L Chloride (98-107) mmol/L Carbon Dioxide (22-30) mmol/L Anion Gap mmol/L BUN (9-20) mg/dL Creatinine (0.66-1.25) mg/dL Est GFR (CKD-EPI)AfAm (>60 ml/min/1.73 sqM) Est GFR (CKD-EPI)NonAf (>60 ml/min/1.73 sqM) Glucose (74-99) mg/dL Plasma Lactic Acid Jose (0.7-2.0) mmol/L Calcium (8.4-10.2) mg/dL Magnesium (1.6-2.3) mg/dL Total Bilirubin (0.2-1.3) mg/dL AST (17-59) U/L ALT (4-49) U/L Alkaline Phosphatase (38-126) U/L Creatine Kinase (55-170) U/L Troponin I 0.019 (0.000-0.034) ng/mL NT-Pro-B Natriuret Pep 821 pg/mL Total Protein (6.3-8.2) g/dL Albumin (3.5-5.0) g/dL - EKG Data -: EKG Interpreted by Oh EKG shows normal: sinus rhythm EKG Comments: Bradycardia rate of 56 DC interval 156 QRS 122 QT since QTC 470/453 right bun dle-branch block nonspecific inferior configuration - Radiology Data Radiology results: report reviewed (Imaging reviewed evidence of a small left pleural effusion CAT scan shows no evidence of pulmonary embolism.), image reviewed Disposition Clinical Impression: Acute bronchospasm, History of coronary artery bypass graft Disposition: HOME SELF-CARE Condition: Good Instructions (If sedation given, give patient instructions): Bronchospasm (ED) Prescriptions: Ipratropium/Albuterol Sulfate [Combivent Respimat Inhaler] 2 puff INHALATION QID #1 inhaler Is patient prescribed a controlled substance at d/c from ED?: No Referrals: Rafat Eduardo MD [Primary Care Provider] - 1-2 days
[2021-05-01 11:24] LABS: Basophils % (A) 0 %; Eosinophils # (A) 1.1 k/uL (0-0.7); Eosinophils % (A) 12 %; HCT 38.6 % (39.0-53.0); HGB 12.8 gm/dL (13.0-17.5); Lymphocytes # (A) 0.9 k/uL (1.0-4.8); Lymphocytes % (A) 10 %; MCH 31.2 pg (25.0-35.0); MCHC 33.2 g/dL (31.0-37.0); Mean Platelet Volume 7.1; Monocytes # (A) 0.6 k/uL (0-1.0); Monocytes % (A) 6 %; Neutrophils # (A) 6.3 k/uL (1.3-7.7); Neutrophils % (A) 70 %; Platelet Count 600 k/uL (150-450); Poikilocytosis Slight; RDW 13.9 % (11.5-15.5)
--- NOTE | 2021-05-01 11:28 | XR ---
EXAMINATION TYPE: XR chest 2V DATE OF EXAM: 05/01/2021 COMPARISON: 05/21/2017 INDICATION: Difficulty breathing short of breath TECHNIQUE: Single frontal view of the chest is obtained. FINDINGS: The heart size is normal. The pulmonary vasculature is normal. Small posterior left pleural effusion may be present. Sternotomy wires are present from prior CABG. IMPRESSION: 1. Suggestion of small left pleural effusion
[2021-05-01 11:35] LABS: ALT 34 U/L (4-49); AST 37 U/L (17-59); African American GFR (CKD) >90 (>60 ml/min/1.73 sqM); Alkaline Phosphatase 69 U/L (38-126); Anion Gap 11 mmol/L; Blood Urea Nitrogen 22 mg/dL (9-20); Calcium 10.5 mg/dL (8.4-10.2); Carbon Dioxide 20 mmol/L (22-30); Chloride 106 mmol/L (98-107); Creatine Kinase 60 U/L (55-170); Glucose 100 mg/dL (74-99); Magnesium 1.8 mg/dL (1.6-2.3); Non-African American GFR(CKD) >90 (>60 ml/min/1.73 sqM); Potassium 4.7 mmol/L (3.5-5.1); Sodium 137 mmol/L (137-145); Total Bilirubin 0.4 mg/dL (0.2-1.3); Total Protein 6.7 g/dL (6.3-8.2)
[2021-05-01 13:00] LABS: INR 1.1 (<1.2); Prothrombin Time 11.2 sec (9.0-12.0)
[2021-05-01 13:10] LABS: Partial Thromboplastin Time 21.5 sec (22.0-30.0)
--- NOTE | 2021-05-01 14:19 | CT ---
EXAMINATION TYPE: CT angio chest DATE OF EXAM: 05/01/2021 COMPARISON: Chest x-ray same date HISTORY: Shortness of breath CT DLP: 284.7 mGycm Automated exposure control for dose reduction was used. CONTRAST: CTA scan of the thorax is performed with IV Contrast, patient injected with 100, wasted 24 ml mL of I sovue 370, pulmonary embolism protocol. MIP images are created and reviewed. 3D reconstructed image s are created on an independent workstation and reviewed. FINDINGS: Patient shows post median sternotomy change in the interval. LUNGS: The lungs are grossly clear, there is no concerning parenchymal mass or nodule identified. T here is left pleural effusion and associated atelectasis as noted on chest x-ray. Small amount of per icardial fluid is noted anteriorly and inferiorly that was not seen on prior CT The tracheobronchial tree is patent. AORTA: No additional significant abnormality is seen. MEDIASTINUM: There is satisfactory enhancement of the pulmonary artery and its branches, there is no CT evidence for pulmonary embolism. There are no greater than 1 cm hilar or mediastinal lymph nodes. No pericardial effusion is seen. Coronary stent is noted along the left anterior descending artery , surgical clips present at the cardiac apex. OTHER: No additional significant abnormality is seen. IMPRESSION: POSTOP FINDINGS. LEFT PLEURAL EFFUSION AND ASSOCIATED ATELECTASIS. NO EVIDENT PULMONARY EMBOLISM. SMA LL AMOUNT OF PERICARDIAL FLUID MAY BE POSTOPERATIVE.
[2021-05-01 14:49] VITALS: BP 103/62; PULSE 56
== END 2021-05-01 14:53 | disposition home or self-care (01) ==
LOC: EC 10:34
DX: J98.01 Acute bronchospasm (principal); E78.5 Hyperlipidemia, unspecified; I10 Essential (primary) hypertension; I25.2 Old myocardial infarction; J45.909 Unspecified asthma, uncomplicated; K21.9 Gastro-esophageal reflux disease without esophagitis; Z95.1 Presence of aortocoronary bypass graft; Z79.899 Other long term (current) drug therapy; Z88.0 Allergy status to penicillin; Z87.891 Personal history of nicotine dependence; Z88.1 Allergy status to other antibiotic agents
CPT/HCPCS: 36415; 94640; 93005; 85379; 83880; 80053; 82550; 83605; 83735; 84484; 85025; 85610; 85730; 71046; 71275; 99285; 96360; 96361; Q9967

== ENCOUNTER → 2021-05-28 | Outpatient (CLI) | payer BC ==
[2021-05-28 21:28] LABS: Chol/HDL Ratio 2.23
== END | disposition home or self-care (01) ==
LOC: LABWHC1 08:49
PROVIDERS: ATTEND Clinical Nurse Specialist Medical-Surgical
DX: E78.2 Mixed hyperlipidemia (principal)
CPT/HCPCS: 36415; 80061; 84450; 84460

== ENCOUNTER → 2021-10-29 | Outpatient (CLI) | payer MEDICARE, OTHER ==
--- NOTE | 2021-10-29 14:16 | US ---
EXAMINATION TYPE: US kidneys/renal and bladder DATE OF EXAM: 10/29/2021 COMPARISON: NONE CLINICAL HISTORY: R31.29. Hematuria, HTN EXAM MEASUREMENTS: Right Kidney: 11.6 x 6.2 x 6.2 cm Left Kidney: 12.1 x 5.5 x 5.2 cm Right Kidney: No hydronephrosis or masses seen Left Kidney: No hydronephrosis or masses seen Bladder: wnl Bilateral Jets seen: Yes There is no evidence for hydronephrosis at this point in time. No nephrolithiasis is seen. No brady s are identified. Cortical medullary differentiation is maintained. The urinary bladder is anechoic. Bilateral ureteral jets are seen. No abnormalities seen. IMPRESSION: Renal sizes as described.
== END | disposition home or self-care (01) ==
LOC: RADUSWWP 12:35
PROVIDERS: ATTEND Internal Medicine
DX: R31.29 Other microscopic hematuria (principal)
CPT/HCPCS: 76770

== ENCOUNTER → 2023-03-27 | Outpatient (CLI) | payer MEDICARE, OTHER ==
[2023-03-27 12:23] LABS: African American GFR (CKD) >90 (>60 ml/min/1.73 sqM); Blood Urea Nitrogen 19 mg/dL (9-20); Non-African American GFR(CKD) 87 (>60 ml/min/1.73 sqM)
--- NOTE | 2023-03-27 17:08 | CT ---
EXAMINATION TYPE: CT abdomen pelvis w con DATE OF EXAM: 03/27/2023 COMPARISON: INDICATION: rectal bleeding x5 weeks DLP: 700.3 mGycm, Automated exposure control for dose reduction was used. CONTRAST: 100 mL of Isovue 300. Study performed with Oral Contrast TECHNIQUE: Axial images were obtained from above the diaphragm to the pubic rami in the axial plane a t 5 mm thick sections. Reconstructed images are reviewed on the computer in the coronal plane. FINDINGS: Limited CT sections are obtained the lung bases. The lung bases are clear. CT ABDOMEN: Liver: Normal Spleen: Normal Pancreas: Normal Adrenal glands: The adrenal glands are normal. Gallbladder: Normal Kidneys: No masses are evident. No hydronephrosis is present. No cysts are present. Delayed images were obtained through the kidneys, which remain unremarkable. Aorta: Normal Inferior vena cava: Normal. CT PELVIS: Loops of bowel within the abdomen and pelvis are normal. There are loops of bowel which are incom pletely distended or lack oral contrast limiting their evaluation. Moderate fecal retention is throug h the ascending and proximal transverse colon. Few diverticuli within the proximal sigmoid colon Appendix: Not identified. No dilated tubular structure or inflammatory changes evident. Urinary bladder: Normal. Genitourinary structures: Prostate is prominent. Osseous structures: No suspicious lytic or sclerotic lesions. IMPRESSIONS: 1. No suspicious acute abnormality account for rectal bleeding
== END | disposition home or self-care (01) ==
LOC: RADCTMAIN 11:42
PROVIDERS: ATTEND Internal Medicine
DX: K62.5 Hemorrhage of anus and rectum (principal); K52.9 Noninfective gastroenteritis and colitis, unspecified
CPT/HCPCS: 82565; 84520; 74177; 36415; Q9967

== ENCOUNTER 2023-11-09 12:59 | Inpatient (IN) | payer MEDICARE, OTHER ==
--- NOTE | 2023-11-09 13:21 | ED ---
General Adult HPI - General Chief complaint: Chest Pain Stated complaint: Chest pains Time Seen by Provider: 11/09/23 13:00 Source: patient, RN notes reviewed, old records reviewed Mode of arrival: wheelchair Limitations: no limitations - History of Present Illness Initial comments: This is a 68-year-old male who presents to the emergency department the past medical history significant for bypass surgery as well as a stent placement. Patient also has high blood pressure high cholesterol. Patient has a strong family history of heart disease. Patient states he was doing quite a bit of physical labor today when he started to experience lightheadedness weakness chest pain. Patient states the chest pain radiated to left arm little bit. Patient states he also became diaphoretic and short of breath. Patient states all the symptoms have resolved except for feeling very fatigued now. Patient states that this is the exact same symptoms he had previously when he had one of his heart attacks. Patient denies any fever chills or cough. Patient has any chest pain currently. Patient denies any abdominal pain. Patient has any nausea vomiting diarrhea - Related Data Home Medications Medication Instructions Recorded Confirmed Rosuvastatin Calcium [Crestor] 20 mg PO HS 10/27/18 05/01/21 ALPRAZolam [Xanax] 0.25 mg PO BID PRN 02/24/20 05/01/21 Albuterol Sulfate [Proair Hfa] 2 puff INHALATION RT-QID PRN 05/01/21 05/01/21 Metoprolol Tartrate [Lopressor] 50 mg PO BID 05/01/21 05/01/21 Omeprazole Magnesium [PriLOSEC OTC] 20 mg PO DAILY 05/01/21 05/01/21 amLODIPine [Norvasc] 10 mg PO DAILY 05/01/21 05/01/21 Previous Rx's Medication Instructions Recorded Aspirin EC [Ecotrin Low Dose] 81 mg PO DAILY tablet. 05/24/15 Ipratropium/Albuterol Sulfate 2 puff INHALATION QID #1 inhaler 05/01/21 [Combivent Respimat Inhaler] Allergies Allergy/AdvReac Type Severity Reaction Status Date / Time clindamycin Allergy Rash/Hives Verified 05/01/21 14:47 Penicillins Allergy Rash/Hives Verified 05/01/21 14:47 Review of Systems ROS Statement: Those systems with pertinent positive or pertinent negative responses have been documented in the HPI. ROS Other: All systems not noted in ROS Statement are negative. Past Medical History Past Medical History: Asthma, Chest Pain / Angina, GERD/Reflux, Hyperlipidemia, Hypertension, Myocardial Infarction (non Q-wave), Osteoarthritis (OA) Additional Past Medical History / Comment(s): . Last Myocardial Infarction Date:: 05/22/15 History of Any Multi-Drug Resistant Organisms: None Reported Past Surgical History: Cholecystectomy, Coronary Bypass/CABG, Heart Catheterization With Stent, Hernia Repair, Orthopedic Surgery Additional Past Surgical History / Comment(s): deviated septum, rt shoulder rotator cuff, EGD, colonoscopy,lt inguinal hernia repair, vivien fundoplication, left carpal tunnel, CABG 04/15/2021 Past Anesthesia/Blood Transfusion Reactions: No Reported Reaction Date of Last Stent Placement:: 05-23-15 Past Psychological History: Anxiety Smoking Status: Former smoker Past Alcohol Use History: Occasional Past Drug Use History: Marijuana - Past Family History Sister(s) Family Medical History: Cancer (Blood cancer not determined to be leukemia or multiple myeloma) Mother Family Medical History: Chest Pain / Angina, Diabetes Mellitus Additional Family Medical History / Comment(s): age 84, heart problems Father Family Medical History: Chest Pain / Angina Additional Family Medical History / Comment(s): age 72 General Exam - General Exam Comments Initial Comments: GENERAL: Patient is well-developed and well-nourished. Patient is nontoxic and well- hydrated and is in mild distress. ENT: Neck is soft and supple. No significant lymphadenopathy is noted. Oropharynx is clear. Moist mucous membranes. Neck has full range of motion without eliciting any pain. EYES: The sclera were anicteric and conjunctiva were pink and moist. Extraocular movements were intact and pupils were equal round and reactive to light. Eyelids were unremarkable. PULMONARY: Unlabored respirations. Good breath sounds bilaterally. No audible rales rh onchi or wheezing was noted. CARDIOVASCULAR: There is a regular rate and rhythm without any murmurs gallops or rubs. ABDOMEN: Soft and nontender with normal bowel sounds. SKIN: Skin is clear with no lesions or rashes and otherwise unremarkable. NEUROLOGIC: Patient is alert and oriented x3. Cranial nerves II through XII are grossly intact. Motor and sensory are also intact. Normal speech, volume and content. Symmetrical smile. MUSCULOSKELETAL: Normal extremities with adequate strength and full range of motion. LYMPHATICS: No significant lymphadenopathy is noted PSYCHIATRIC: Normal psychiatric evaluation. Limitations: no limitations Course Vital Signs 11/09/23 13:00 Temperature 97.9 F Pulse Rate 80 Respiratory 18 Rate Blood Pressure 149/88 O2 Sat by Pulse 98 Oximetry Medical Decision Making - Medical Decision Making EKG shows sinus rhythm at 64 bpm [place] interval 166 QRS 141 QT interval is 411 QTc is 420. Patient's EKG shows a right bundle branch block. There is no ST segment elevation Was pt. sent in by a medical professional or institution (, PA, PSYCHOTHERAPIST SOCIAL WORKER, urgent care, hospital, or correction...) When possible be specific @ -[No] Did you speak to anyone other than the patient for history (EMS, parent, family, police, friend...)? What history was obtained from this source @ -[No] Did you review nursing and triage notes (agree or disagree)? Why? @ -[I reviewed and agree with nursing and triage notes] Were old charts reviewed (outside hosp., previous admission, EMS record, old EKG, old radiological studies, urgent care reports/EKG's, correction records)? Report findings @ -I have reviewed prior charts and prior lab work and prior radiological studies on this patient Differential Diagnosis (chest pain, altered mental status, abdominal pain women, abdominal pain men, vaginal bleeding, weakness, fever, dyspnea, syncope, headache, dizziness, GI bleed, back pain, seizure, CVA, palpatations, mental health, musculoskeletal)? @ -Differential Chest Pain: Stable Angina, Unstable Angina, STEMI, NSTEMI Aortic Dissection, Pneumothorax, Musculoskeletal, Esophageal Spasm GERD, Cholecystitis, Pancreatitis, Zoster, this is not meant to be an all-inclusive list. EKG interpreted by me (3pts min.). @ -[As above] X-rays interpreted by me (1pt min.). @ -Chest x-ray shows no acute abnormality CT interpreted by me (1pt min.). @ -[None done] U/S interpreted by me (1pt. min.). @ -[None done] What testing was considered but not performed or refused? (CT, X-rays, U/S, labs)? Why? @ -[None] What meds were considered but not given or refused? Why? @ -[None] Did you discuss the management of the patient with other professionals (professionals i.e. DrZora, PA, PSYCHOTHERAPIST SOCIAL WORKER, lab, RT, psych nurse, social insurance specialist, hog cutter, teacher, building drafting officer, case folder)? Give summary @ -I spoke with Dr. Hedrick he agreed to admit the patient Was smoking cessation discussed for >3mins.? @ -[No] Was critical care preformed (if so, how long)? @ -35 minutes Were there social determinants of health that impacted care today? How? (Homelessness, low income, unemployed, alcoholism, drug addiction, transportation, low edu. Level, literacy, decrease access to med. care, mcc, rehab)? @ -[No] Was there de-escalation of care discussed even if they declined (Discuss DNR or withdrawal of care, Hospice)? DNR status @ -[No] What co-morbidities impacted this encounter? (DM, HTN, Smoking, COPD, CAD, Cancer, CVA, ARF, Chemo, Hep., AIDS, mental health diagnosis, sleep apnea, morbid obesity)? @ -[None] Was patient admitted / discharged? Hospital course, mention meds given and route, prescriptions, significant lab abnormalities, going to OR and other pertinent info. @ -Patient's chest pain was resolved when he came into the emergency department. Lab work showed no elevation of troponin. EKG was normal. Patient's chest x- ray was normal. I started the patient on heparin because of his significant symptoms and he is previous medical history. I spoke with Dr. Hedrick he agreed to admit the patient admit the patient wrote admitting orders and I consult the cardiology Undiagnosed new problem with uncertain prognosis? @ -[No] Drug Therapy requiring intensive monitoring for toxicity (Heparin, Nitro, Insulin, Cardizem)? @ -[No] Were any procedures done? @ -[No] Diagnosis/symptom? @ -Chest pain Acute, or Chronic, or Acute on Chronic? @ -Acute Uncomplicated (without systemic symptoms) or Complicated (systemic symptoms)? @ -Complicated Side effects of treatment? @ -[No] Exacerbation, Progression, or Severe Exacerbation? @ -[No] Poses a threat to life or bodily function? How? (Chest pain, USA, MS, pneumonia, PE, COPD, DKA, ARF, appy, cholecystitis, CVA, Diverticulitis, Homicidal, Suicidal, threat to staff... and all critical care pts) @ -Yes this could lead to hypoperfusion and endorgan dysfunction - Lab Data Result diagrams: 11/09/23 13:25 11/09/23 13:25 Lab Results 11/09/23 11/09/23 11/09/23 Range/Units 13:25 13:25 13:25 WBC 10.5 (3.8-10.6) k/uL RBC 5.52 (4.30-5.90) m/uL Hgb 17.3 (13.0-17.5) gm/dL Hct 51.2 (39.0-53.0) % MCV 92.9 (80.0-100.0) fL MCH 31.3 (25.0-35.0) pg MCHC 33.7 (31.0-37.0) g/dL RDW 13.0 (11.5-15.5) % Plt Count 245 (150-450) k/uL MPV 6.4 Neutrophils % 83 % Lymphocytes % 9 % Monocytes % 5 % Eosinophils % 1 % Basophils % 0 % Neutrophils # 8.7 H (1.3-7.7) k/uL Lymphocytes # 0.9 L (1.0-4.8) k/uL Monocytes # 0.6 (0-1.0) k/uL Eosinophils # 0.1 (0-0.7) k/uL Basophils # 0.0 (0-0.2) k/uL PT 10.6 (10.0-12.5) sec INR 1.0 (<1.2) APTT 22.2 (22.0-30.0) sec Sodium 137 (137-145) mmol/L Potassium 4.7 (3.5-5.1) mmol/L Chloride 103 (98-107) mmol/L Carbon Dioxide 22 (22-30) mmol/L Anion Gap 12 mmol/L BUN 18 (9-20) mg/dL Creatinine 1.11 (0.66-1.25) mg/dL Est GFR (CKD-EPI)AfAm 79 (>60 ml/min/1.73 sqM) Est GFR (CKD-EPI)NonAf 68 (>60 ml/min/1.73 sqM) Glucose 101 H (74-99) mg/dL Calcium 10.6 H (8.4-10.2) mg/dL Magnesium 1.6 (1.6-2.3) mg/dL Total Bilirubin 0.7 (0.2-1.3) mg/dL AST 41 (17-59) U/L ALT 41 (4-49) U/L Alkaline Phosphatase 83 (38-126) U/L Troponin I (0.000-0.034) ng/mL NT-Pro-B Natriuret Pep 149 pg/mL Total Protein 7.6 (6.3-8.2) g/dL Albumin 4.6 (3.5-5.0) g/dL 11/09/23 Range/Units 13:25 WBC (3.8-10.6) k/uL RBC (4.30-5.90) m/uL Hgb (13.0-17.5) gm/dL Hct (39.0-53.0) % MCV (80.0-100.0) fL MCH (25.0-35.0) pg MCHC (31.0-37.0) g/dL RDW (11.5-15.5) % Plt Count (150-450) k/uL MPV Neutrophils % % Lymphocytes % % Monocytes % % Eosinophils % % Basophils % % Neutrophils # (1.3-7.7) k/uL Lymphocytes # (1.0-4.8) k/uL Monocytes # (0-1.0) k/uL Eosinophils # (0-0.7) k/uL Basophils # (0-0.2) k/uL PT (10.0-12.5) sec INR (<1.2) APTT (22.0-30.0) sec Sodium (137-145) mmol/L Potassium (3.5-5.1) mmol/L Chloride (98-107) mmol/L Carbon Dioxide (22-30) mmol/L Anion Gap mmol/L BUN (9-20) mg/dL Creatinine (0.66-1.25) mg/dL Est GFR (CKD-EPI)AfAm (>60 ml/min/1.73 sqM) Est GFR (CKD-EPI)NonAf (>60 ml/min/1.73 sqM) Glucose (74-99) mg/dL Calcium (8.4-10.2) mg/dL Magnesium (1.6-2.3) mg/dL Total Bilirubin (0.2-1.3) mg/dL AST (17-59) U/L ALT (4-49) U/L Alkaline Phosphatase (38-126) U/L Troponin I 0.032 (0.000-0.034) ng/mL NT-Pro-B Natriuret Pep pg/mL Total Protein (6.3-8.2) g/dL Albumin (3.5-5.0) g/dL Disposition Clinical Impression: Chest pain Disposition: ADMITTED IP TO THIS HOSP Referrals: Gigi Hedrick MD [Primary Care Provider] - 1-2 days Time of Disposition: 14:26
[2023-11-09] MEDS: NITROGLYCERIN OINT 1 INCH/GM PACKET TOPICAL STA (13:22)
[2023-11-09 13:37] LABS: Basophils % (A) 0 %; Eosinophils # (A) 0.1 k/uL (0-0.7); Eosinophils % (A) 1 %; HCT 51.2 % (39.0-53.0); HGB 17.3 gm/dL (13.0-17.5); Lymphocytes # (A) 0.9 k/uL (1.0-4.8); Lymphocytes % (A) 9 %; MCH 31.3 pg (25.0-35.0); MCHC 33.7 g/dL (31.0-37.0); MCV 92.9 fL (80.0-100.0); Mean Platelet Volume 6.4; Monocytes # (A) 0.6 k/uL (0-1.0); Monocytes % (A) 5 %; Neutrophils # (A) 8.7 k/uL (1.3-7.7); Neutrophils % (A) 83 %; Platelet Count 245 k/uL (150-450); RBC 5.52 m/uL (4.30-5.90); WBC 10.5 k/uL (3.8-10.6)
[2023-11-09 13:51] LABS: ALT 41 U/L (4-49); AST 41 U/L (17-59); African American GFR (CKD) 79 (>60 ml/min/1.73 sqM); Albumin 4.6 g/dL (3.5-5.0); Alkaline Phosphatase 83 U/L (38-126); Anion Gap 12 mmol/L; Blood Urea Nitrogen 18 mg/dL (9-20); Calcium 10.6 mg/dL (8.4-10.2); Carbon Dioxide 22 mmol/L (22-30); Chloride 103 mmol/L (98-107); Glucose 101 mg/dL (74-99); Magnesium 1.6 mg/dL (1.6-2.3); Non-African American GFR(CKD) 68 (>60 ml/min/1.73 sqM); Partial Thromboplastin Time 22.2 sec (22.0-30.0); Potassium 4.7 mmol/L (3.5-5.1); Prothrombin Time 10.6 sec (10.0-12.5); Sodium 137 mmol/L (137-145); Total Bilirubin 0.7 mg/dL (0.2-1.3); Total Protein 7.6 g/dL (6.3-8.2)
--- NOTE | 2023-11-09 13:58 | XR ---
EXAMINATION TYPE: XR chest 2V DATE OF EXAM: 11/09/2023 COMPARISON: 05/01/2021 HISTORY: 68-year-old male with chest pain TECHNIQUE: PA and lateral views FINDINGS: Heart normal size. Median sternotomy wires and post-CABG clips. Aorta and pulmonary vasculature withi n normal limits. No consolidation or pleural effusion. IMPRESSION: Post-CABG changes. No acute process seen.
[2023-11-09 13:59] LABS: NT-Pro-B-Type Natriuretic Pept 149 pg/mL
[2023-11-09] MEDS: HEPARIN SOD,PORK IN 0.45% NACL 25,000 UNIT in 0.45% NACL 1 250ML.BAG IV SCH (14:25)
[2023-11-09] MEDS ORDERED: NITROGLYCERIN SL TABS 0.4 MG TAB SUBLINGUAL PRN (14:26)
[2023-11-09] MEDS: HEPARIN SODIUM 1,000 UN/ML (10ML VL) IV ONE (14:28)
[2023-11-09] MEDS ORDERED: ALPRAZolam 0.25 MG TAB PO PRN (18:14)
[2023-11-09] MEDS: NITROGLYCERIN OINT 1 INCH/GM PACKET TOPICAL SCH (18:41)
[2023-11-09] MEDS ORDERED: NON FORMULARY DRUG (Aspirin Ec 81 MG Tablet) PO SCH (21:00)
[2023-11-09 21:01] LABS: Partial Thromboplastin Time 25.7 sec (22.0-30.0); Prothrombin Time 10.9 sec (10.0-12.5)
[2023-11-09] MEDS: METOPROLOL SUCCINATE (ER) 50 MG TAB.ER.24H PO SCH (21:09)
[2023-11-09] MEDS: LOSARTAN 25 MG TAB PO SCH (21:09)
[2023-11-09] MEDS: HEPARIN SODIUM 1,000 UN/ML (10ML VL) IV PRN (21:48)
[2023-11-09 23:07] LABS: Appearance,Urine Clear (Clear); Bilirubin,Urine Negative (Negative); Blood,Urine Small (Negative); Color,Urine Yellow; Glucose,Urine (UA) 4+ (Negative); Hyaline Casts,Urine 1 /lpf (0-2); Ketones,Urine 1+ (Negative); Leukocyte Esterase,Urine Negative (Negative); Mucus,Urine Few /hpf; Nitrite,Urine Negative (Negative); Protein,Urine Negative (Negative); RBC,Urine 6 /hpf (0-5); Specific Gravity,Urine 1.024 (1.001-1.035); Squamous Epithelial Cell,Urine <1 /hpf (0-4); Urobilinogen,Urine <2.0 mg/dL (<2.0); WBC,Urine 2 /hpf (0-5)
[2023-11-10] MEDS ORDERED: HEPARIN SODIUM,PORCINE 10,000 UNIT in SODIUM CHLORIDE 0.9% 1,000 ML IRRIGATION PRN (07:00)
[2023-11-10] MEDS ORDERED: HEPARIN SODIUM,PORCINE (1 ML) 2,500 UNIT in SODIUM CHLORIDE 0.9% 250 ML IRRIGATION PRN (07:00)
[2023-11-10] MEDS ORDERED: NITROGLYCERIN SL TABS 0.4 MG TAB SUBLINGUAL PRN (08:21)
[2023-11-10] MEDS ORDERED: ALPRAZolam 0.25 MG TAB PO PRN (08:21)
[2023-11-10] MEDS ORDERED: ALPRAZolam 0.5 MG TAB PO PRN (08:21)
[2023-11-10] MEDS: ATORVASTATIN 80 MG TAB PO STA (08:42)
[2023-11-10] MEDS: ASPIRIN 325 MG TAB PO STA (08:42)
[2023-11-10] MEDS: PANTOPRAZOLE 40 MG TABLET PO SCH (08:43)
--- NOTE | 2023-11-10 10:36 | P.CRDCN ---
History of Present Illness History of present illness: HISTORY OF PRESENT ILLNESS: This is a 68-year-old male with a past medical history significant for coronary artery disease with stenting in 2014, four-vessel CABG in 2020, hypertension, h yperlipidemia, and GERD. Patient follows in the office with Dr. Mckoy. We have been asked to see the patient in consultation for non-STEMI. Patient examined at the bedside. Patient states yesterday he was helping his sister with some physical labor when he developed chest pain. He states the pain was in the middle of his chest. He reports feeling diaphoretic and short of breath. He states the symptoms were similar to when he required stenting in the past. He was found to have elevated troponins and was started on IV heparin. He denies any chest pain or pressure at the time of examination. DIAGNOSTICS: - EKG reveals sinus mechanism with right bundle branch block. - Chest xray post CABG changes. No acute process seen.. - Laboratory data: WBC 10.5. Hemoglobin 17.3. Platelet count 245. Sodium 137. Potassium 4.7. BUN 18. Creatinine 1.11. Magnesium 1.6. Troponin 0.032. 0.079. 0.091 - Current home cardiac medications include rosuvastatin 20 mg daily, aspirin 81 mg daily, losartan 25 mg twice a day, and metoprolol succinate 50 mg at night. - Most recent echocardiogram obtained in June 2017 revealed ejection fraction 55%, mild MR, mild TR -Patient underwent Cardiolite stress test in November 2018 which was negative for ischemia REVIEW OF SYSTEMS: At the time of my exam: CONSTITUTIONAL: Denies fever or chills. HEENT: Denies blurred vision, vision changes, or eye pain. Denies hemoptysis CARDIOVASCULAR: Denies chest pain. Denies orthopnea. Denies PND. Denies palpi tations RESPIRATORY: Denies shortness of breath. GASTROINTESTINAL: Denies abdominal pain. Denies nausea or vomiting. HEMATOLOGIC: Denies bleeding disorders. GENITOURINARY: Denies any blood in urine. SKIN: Denies pruitis. Denies rash. PHYSICAL EXAM: VITAL SIGNS: Reviewed. GENERAL: Well-developed in no acute distress. HEENT: Head is normocephalic. Pupils are equal, round. Sclerae anicteric. Mucous membranes of the mouth are moist. Neck supple. No JVD or thyromegaly LUNGS: Respirations even and unlabored. Lungs essentially clear to auscultation bilaterally. HEART: Regular rate and rhythm. S1 and S2 heard. ABDOMEN: Soft. Nondistended. Nontender. EXTREMITIES: Normal range of motion. No clubbing or cyanosis. Peripheral pulses intact. No lower extremity edema NEUROLOGIC: Awake and alert. Oriented x 3. ASSESSMENT: Chest pain Non-STEMI Coronary artery disease with previous stenting of the mid LAD in 2014 and subsequent four-vessel CABG in 2020 at [place] Hypertension Hyperlipidemia GERD PLAN: Continue current cardiac medications Continue IV heparin Patient to undergo cardiac catheterization today with Dr. 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 Signing provider agrees with the documented findings, assessment, and plan of care documented by ASSEM[employer]ATE as a scribe. Past Medical History Past Medical History: Asthma, Chest Pain / Angina, GERD/Reflux, Hyperlipidemia, Hypertension, Myocardial Infarction (non Q-wave), Osteoarthritis (OA) Additional Past Medical History / Comment(s): . Last Myocardial Infarction Date:: 05/22/15 History of Any Multi-Drug Resistant Organisms: None Reported Past Surgical History: Cholecystectomy, Coronary Bypass/CABG, Heart Catheterization With Stent, Hernia Repair, Orthopedic Surgery Additional Past Surgical History / Comment(s): deviated septum, rt shoulder rotator cuff, EGD, colonoscopy,lt inguinal hernia repair, vivien fundoplication, left carpal tunnel, CABG 04/15/2021 Past Anesthesia/Blood Transfusion Reactions: No Reported Reaction Date of Last Stent Placement:: 05-23-15 Past Psychological History: Anxiety Smoking Status: Former smoker Past Alcohol Use History: Occasional Past Drug Use History: Marijuana - Past Family History Sister(s) Family Medical History: Cancer (Blood cancer not determined to be leukemia or multiple myeloma) Mother Family Medical History: Chest Pain / Angina, Diabetes Mellitus Additional Family Medical History / Comment(s): age 84, heart problems Father Family Medical History: Chest Pain / Angina Additional Family Medical History / Comment(s): age 72 Medications and Allergies Home Medications Medication Instructions Recorded Confirmed Type Rosuvastatin Calcium [Crestor] 20 mg PO W/LUNCH 10/27/18 11/09/23 History ALPRAZolam [Xanax] 0.25 mg PO HS PRN 02/24/20 11/09/23 History Omeprazole Magnesium [PriLOSEC OTC] 20 mg PO DAILY 05/01/21 11/09/23 History Aspirin EC [Ecotrin Low Dose] 81 mg PO HS 11/09/23 11/09/23 History Losartan [Cozaar] 25 mg PO BID 11/09/23 11/09/23 History Metoprolol Succinate (ER) [Toprol 50 mg PO HS 11/09/23 11/09/23 History Xl] Allergies Allergy/AdvReac Type Severity Reaction Status Date / Time clindamycin Allergy Rash/Hives Verified 11/09/23 15:10 Penicillins Allergy Rash/Hives Verified 11/09/23 15:10 Physical Exam Vitals: Vital Signs Temp Pulse Pulse Resp BP BP Pulse Ox 11/10/23 07:00 96.5 F L 52 L 18 141/76 98 11/10/23 06:20 48 L 17 148/86 95 11/10/23 05:24 71 14 133/77 95 11/10/23 03:00 50 L 17 146/86 11/10/23 00:14 48 L 17 136/71 97 11/09/23 21:05 59 L 18 136/71 96 11/09/23 17:00 60 18 122/64 96 11/09/23 16:30 65 18 131/74 95 11/09/23 16:00 70 18 123/68 97 11/09/23 15:30 78 18 131/75 94 L 11/09/23 15:00 59 L 18 129/72 95 11/09/23 14:30 63 15 133/80 95 11/09/23 14:00 67 18 126/76 95 11/09/23 13:00 97.9 F 80 18 149/88 98 Intake and Output 11/09/23 11/10/23 11/10/23 22:59 06:59 14:59 Intake Total 68.781 Balance 68.781 Intake: Intake, IV Titration 68.781 Amount Heparin Sod,Pork in 0.45% 68.781 NaCl 25,000 unit In 0.45 % NaCl 1 250ml.bag @ 12 UNITS/KG/HR 9.253 mls/hr IV .Q24H [facility] Rx#: [id number] Results 11/09/23 13:25 11/09/23 13:25 Cardiac Enzymes 11/09/23 11/09/23 11/09/23 Range/Units 13:25 13:25 16:49 AST 41 (17-59) U/L Troponin I 0.032 0.079 H* (0.000-0.034) ng/mL 11/09/23 Range/Units 20:32 AST (17-59) U/L Troponin I 0.091 H* (0.000-0.034) ng/mL Coagulation 11/09/23 11/09/23 Range/Units 13:25 20:32 PT 10.6 10.9 (10.0-12.5) sec APTT 22.2 25.7 (22.0-30.0) sec CBC 11/09/23 Range/Units 13:25 WBC 10.5 (3.8-10.6) k/uL RBC 5.52 (4.30-5.90) m/uL Hgb 17.3 (13.0-17.5) gm/dL Hct 51.2 (39.0-53.0) % Plt Count 245 (150-450) k/uL Comprehensive Metabolic Panel 11/09/23 Range/Units 13:25 Sodium 137 (137-145) mmol/L Potassium 4.7 (3.5-5.1) mmol/L Chloride 103 (98-107) mmol/L Carbon Dioxide 22 (22-30) mmol/L BUN 18 (9-20) mg/dL Creatinine 1.11 (0.66-1.25) mg/dL Glucose 101 H (74-99) mg/dL Calcium 10.6 H (8.4-10.2) mg/dL AST 41 (17-59) U/L ALT 41 (4-49) U/L Alkaline Phosphatase 83 (38-126) U/L Total Protein 7.6 (6.3-8.2) g/dL Albumin 4.6 (3.5-5.0) g/dL Current Medications Generic Name Dose Route Start Last Admin Trade Name Freq PRN Reason Stop Dose Admin Alprazolam 0.25 mg 11/09/23 18:14 Alprazolam 0.25 Mg Tab PO HS PRN Anxiety Alprazolam 0.25 mg 11/10/23 08:21 Alprazolam 0.25 Mg Tab PO Q6HR PRN Mild Anxiety Alprazolam 0.5 mg 11/10/23 08:21 Alprazolam 0.5 Mg Tab PO Q6HR PRN Moderate Anxiety Aspirin 325 mg 11/11/23 09:00 Aspirin 325 Mg Tab PO DAILY [facility] Atorvastatin Calcium 40 mg 11/10/23 12:30 Atorvastatin 40 Mg Tab PO W/LUNCH ELLEN Heparin Sodium (Porcine) 0 unit 11/09/23 21:42 11/09/23 21:48 Heparin Sodium 1,000 Un/Ml (10ml Vl) IV 3,850 unit PER PROTOCOL PRN Administration Low PTT Protocol Heparin Sodium/Sodium Chloride 250 mls @ 9.253 mls/hr 11/09/23 14:30 11/09/23 21:51 25,000 unit/ Sodium Chloride IV 15 units/kg/hr .Q24H ELLEN 11.567 mls/hr Titration Protocol 12 UNITS/KG/HR Heparin Sodium (Porcine) 10, 1,001 mls @ 999 mls/hr 11/10/23 07:00 000 unit/ Sodium Chloride IRRIGATION 11/10/23 23:00 ONCE PRN INTRA-OP Heparin Sodium (Porcine) 2,500 250.5 mls @ 250 mls/hr 11/10/23 07:00 unit/ Sodium Chloride IRRIGATION 11/10/23 23:00 ONCE PRN INTRA-OP Sodium Chloride 1,000 ml/ IV 1,000 mls @ 77.111 mls/hr 11/10/23 08:30 Solution IV .[id number] ELLEN 1 ML/KG/HR Losartan Potassium 25 mg 11/09/23 21:00 11/10/23 08:43 Losartan 25 Mg Tab PO 25 mg BID ELLEN Administration Metoprolol Succinate 50 mg 11/09/23 21:00 11/09/23 21:11 Metoprolol Succinate (Er) 50 Mg Tab.Er.24h PO 25 mg HS ELLEN Administration Nitroglycerin 0.4 mg 11/09/23 14:26 Nitroglycerin Sl Tabs 0.4 Mg Tab SUBLINGUAL Q5M PRN Chest Pain Nitroglycerin 1 inch 11/09/23 18:00 11/10/23 05:17 Nitroglycerin Oint 1 Inch/Gm Packet TOPICAL Not Given Q6HR [facility] Pantoprazole Sodium 40 mg 11/10/23 07:30 11/10/23 08:43 Pantoprazole 40 Mg Tablet PO 40 mg [id number] ELLEN Administration Intake and Output 11/09/23 11/10/23 11/10/23 22:59 06:59 14:59 Intake Total 68.781 Balance 68.781 Intake: Intake, IV Titration 68.781 Amount Heparin Sod,Pork in 0.45% 68.781 NaCl 25,000 unit In 0.45 % NaCl 1 250ml.bag @ 12 UNITS/KG/HR 9.253 mls/hr IV .Q24H [facility] Rx#: [id number] 11/09/23 13:25 11/09/23 13:25
[2023-11-10] MEDS: SODIUM CHLORIDE 0.9% 1,000 ML in EMPTY BAG 1 BAG IV SCH (11:05)
[2023-11-10] MEDS ORDERED: LIDOCAINE 1% INJ 10MG/ML (20 ML MDV) ONE (12:08)
[2023-11-10] MEDS: MIDAZOLAM 2 MG/2 ML VIAL IVP ONE (12:24)
[2023-11-10] MEDS: LIDOCAINE 1% INJ 10MG/ML (20 ML MDV) SQ ONE (12:24)
[2023-11-10] MEDS: IOPAMIDOL-370 100ML BTL INJ ONE ×2 (12:37→13:11)
[2023-11-10] MEDS: SODIUM CHLORIDE 0.9% 1,000 ML IV ONE (13:12)
[2023-11-10] MEDS ORDERED: RX INFO: IV CONTRAST WAS GIVEN 1 EACH MISC MISCELLANE PRN (13:16)
--- NOTE | 2023-11-10 13:20 | P.PCN ---
Date of Procedure: 11/10/23 Operative Findings: CARDIAC CATHETERIZATION PERFORMING PHYSICIAN: Pedro Fraire MD, RPVI PROCEDURE PERFORMED: 1. Selective right and left coronary angiogram 2. HOSKINS to LAD angiogram and SVG to diagonal angiogram and SVG to OM angiogram and SVG to PDA angiogram 3. Ultrasound-guided access of the right common femoral artery and selective right common femoral artery arterial INDICATION: Acute non-ST elevation myocardial infarction COMPLICATION: None APPROACH: Right common femoral artery LEVEL OF SEDATION: Moderate with sedation in length of 48 minutes PROCEDURE DESCRIPTION: After obtaining an informed consent, the patient was brought to cardiac cork slabs sawyer. Local anesthesia was performed using lidocaine subcutaneously. The right common femoral artery was cannulated using micropuncture technique under ultrasound guidance, the micropuncture wire passed easily then the micropuncture sheath was advanced over the wire then the micropuncture sheath was exchanged over 035 wire into a 6-Kyrgyz sheath.Selective right and left coronary angiogram using a 6-Kyrgyz JR4 and JL catheters. Following that we did the HOSKINS to LAD angiogram using JR4 catheter and the SVG to diagonal angiogram was performed using the JR4 catheter as well and the SVG to OM angiogram also was performed using the JR4 catheter and the SVG to RCA was performed using the JR4 catheter. Selective right common femoral artery angiogram was performed as well. The procedure was completed there was no complication. SELECTIVE CORONARY ANGIOGRAM: The right coronary artery: Large-caliber vessel and dominant vessel and appears to be occluded by the PDA Left main: Has intermediate lesion appears to be in the range of 50% The left circumflex: The AV groove left circumflex has mild disease only. But gives rises into an OM which is occluded. The left anterior descending artery: The LAD has a long tubular lesion in the midportion appears to be significant. CORONARY BYPASSES ANGIOGRAM: The HOSKINS to LAD is patent. The LAD distal to HOSKINS anastomosis has intermediate disease only The SVG to diagonal is patent The SVG to OM is patent The SVG to PDA is patent CONCLUSION: 1. Severe triple-vessel coronary artery disease 2. Patent HOSKINS to LAD and patent SVG to diagonal and patent SVG to OM and patent SVG to PDA of RCA POSTPROCEDURE MANAGEMENT: Medical treatment
[2023-11-10] MEDS: ATORVASTATIN 40 MG TAB PO SCH (14:24)
[2023-11-10 14:47] VITALS: RESP 16
[2023-11-10] MEDS: SODIUM CHLORIDE 0.9% 1,000 ML IV SCH (15:12)
[2023-11-10 16:17] VITALS: BP 129/63; PULSE 42; TEMP 97.3
[2023-11-10 16:54] LABS: Chol/HDL Ratio 2.44 Ratio; LDL Cholesterol,Calculated 65.4 mg/dL (0.0-131.0); VLDL Calculation 14.16 mg/dL (5.00-40.00)
--- NOTE | 2023-11-10 18:10 | CA ---
Transthoracic Echo Report Name: Dean Breaux Age: 68 Gender: M : 1955 Exam Date: 11/10/2023 15:10 Exam Location: [facility] Ht (in): 69 Wt (lb): 76 Ordering Physician: Yue Sheikh Attending/Referring Phys: [id number], Aguilar Executive Director [employer] Deborah Shah RDCS Procedure CPT: Indications: LV function, NSTEMI Cardiac Hx: 4 vessels CABG Technical Quality: Technically difficult study Contrast 1: Definity Total Dose (mL): 2 Contrast 2: Total Dose (mL): MEASUREMENTS (Male / Female) Normal Values 2D ECHO LV Diastolic Diameter PLAX 4.7 cm 4.2 - 5.9 / 3.9 - 5.3 cm LV Systolic Diameter PLAX 3.2 cm IVS Diastolic Thickness 1.3 cm 0.6 - 1.0 / 0.6 - 0.9 cm LVPW Diastolic Thickness 1.3 cm 0.6 - 1.0 / 0.6 - 0.9 cm LV Relative Wall Thickness 0.6 RV Internal Dim ED PLAX 3.0 cm LA Systolic Diameter LX 3.8 cm 3.0 - 4.0 / 2.7 - 3.8 cm LV Diastolic Volume MOD BP 47.1 cm??? 67 - 155 / 56 - 104 cm??? LV Systolic Volume MOD BP 21.1 cm??? 22 - 58 / 19 - 49 cm??? LV Ejection Fraction MOD BP 55.2 % >= 55 % LV Cardiac Index MOD BP 1008.3 cm???/min???m??? LV Diastolic Volume MOD 4C 44.9 cm??? LV Systolic Volume MOD 4C 26.2 cm??? LV Ejection Fraction MOD 4C 41.6 % LV Cardiac Index MOD 4C 724.1 cm???/min???m??? LV Diastolic Length 4C 7.4 cm LV Systolic Length 4C 6.7 cm LV Diastolic Volume MOD 2C 59.9 cm??? LV Systolic Volume MOD 2C 28.0 cm??? LV Ejection Fraction MOD 2C 53.3 % LV Cardiac Index MOD 2C 1239.0 cm???/min???m??? LV Diastolic Length 2C 7.5 cm LV Systolic Length 2C 6.7 cm LA Volume 39.5 cm??? 18 - 58 / 22 - 52 cm??? LA Volume Index 31.3 cm???/m??? 16 - 28 cm???/m??? M-MODE Aortic Root Diameter MM 3.2 cm MV E Point Septal Separation 0.6 cm AV Cusp Separation MM 2.3 cm DOPPLER AV Peak Velocity 105.1 cm/s AV Peak Gradient 4.4 mmHg MV Area PHT 3.0 cm??? Mitral E Point Velocity 72.3 cm/s Mitral A Point Velocity 58.9 cm/s Mitral E to A Ratio 1.2 MV Deceleration Time 254.1 ms TR Peak Velocity 268.5 cm/s TR Peak Gradient 28.8 mmHg Right Ventricular Systolic Press 33.8 mmHg FINDINGS Left Ventricle Left ventricular ejection fraction is estimated at 55-60 %. Left ventricular cavity size normal. Left ventricular cavity size normal. Mildly increased left ventricular wall thickness. Right Ventricle Normal right ventricular size. Right ventricular systolic pressure within normal limits. Right Atrium Normal right atrial size. Left Atrium Mildly increased left atrial volume. Mitral Valve Structurally normal mitral valve. No mitral stenosis, regurgitation or prolapse. Aortic Valve Trileaflet aortic valve. No aortic valve stenosis or regurgitation. Tricuspid Valve Structurally normal tricuspid valve. Mild tricuspid regurgitation. Pulmonic Valve Structurally normal pulmonic valve. No pulmonic regurgitation. Pericardium No pericardial effusion. Aorta Normal size aortic root and proximal ascending aorta. CONCLUSIONS Definity ECHO contrast used for improved visualization of the endocardial borders (inadequate visualization of two or more contiguous segments). Normal left ventricle size and systolic function Limited Doppler study was mild tricuspid regurgitation Previewed by: Dr. Abdulaziz Jewell MD (Electronically Signed) Final Date: 10 November 2023 18:10
[2023-11-10] MEDS: PANTOPRAZOLE 40 MG TABLET PO STA (19:12)
--- NOTE | 2023-11-10 21:05 | P.HPIM ---
History of Present Illness H&P Date: 11/09/23 Chief Complaint: Chest pain HISTORY OF PRESENT ILLNESS: This is a 68-year-old male with a previous medical history significant for coronary artery disease status post coronary artery bypass graft April 16, 2021 with HOSKINS to LAD, SVG to diagonal branch, SVG to the obtuse marginal branch and SVG to PDA, prior history of left heart catheterization with PCI of the LAD in 2015, hypertension and hypertensive cardiovascular disease, hyperlipidemia, osteoarthritis, history of GERD with esophagitis status post Vivien fundoplication, chronic obstructive pulmonary disease, anxiety disorder, enlarged prostate, patient was in his usual state of health till about a week ago when he went to [place] and he was doing some physical activity at that time he was feeling a bit of chest tightness associated with minimal exertional shortness of breath, patient did not do much about it, he came back to [place] and about a week ago, and yesterday he was helping his sister scraping the floor for about an hour and a half. Then he felt left-sided chest tightness radiating to the shoulder associated with significant cold sweat and shortness of breath, so he decided to come to the emergency department at [facility], had a twelve-lead EKG that showed sinus mechanism with nonspecific changes, his cardiac enzymes initially was negative the second stat came back positive patient was ruled in for non-ST elevation IA, he was started on heparin drip, he was given aspirin 325 mg once every day he was kept on beta-ira and statin and ARB as well he was admitted to the hospital he was seen in consultation by cardiology for left heart catheterization tomorrow morning. REVIEW OF SYSTEMS: Constitutional: No documented fever, no chills, no night sweats. No weight change. No weakness, fatigue or lethargy. No daytime sleepiness. EENT: No headache. No blurred vision or double vision, no loss of vision. No loss of Hearing, no ringing in the ears, no dizziness. No nasal drainage or congestion. No epistaxis. No sore throat. Lungs: positive for shortness of breath, no cough, no sputum production. No wheezing. Reports dyspnea with activity. Cardiovascular: positive for chest pain, no lower extremity edema. No palpitations. No paroxysmal nocturnal dyspnea. No orthopnea. No lightheadedness or dizziness. No syncopal episodes. Abdominal: Reports abdominal pain. No nausea, vomiting. No diarrhea. No constipation. No bloody or tarry stools reports loss of appetite. Genitourinary: No dysuria, increased frequency, urgency. No urinary retention. Musculoskeletal: No myalgias. No muscle weakness, no gait dysfunction, no frequent falls. No back pain. No neck pain. Integumentary: No wounds, no lesions. No rash or pruritus. No unusual bruisi ng. No change in hair or nails. Neurologic: No aphasia. No facial droop. No change in mentation. No head injury. No headache. No paralysis. No paresthesia. Psychiatric: No depression. positive for anxiety. No mood swings. Endocrine: No abnormal blood sugars. No weight change. PAST MEDICAL HISTORY: Coronary artery disease status post PCI of the LAD 2014 Coronary artery disease status post CABG x 4 with HOSKNIS to LAD, SVG to diagonal branch, SVG to obtuse marginal branch, and SVG to the PDA April 16, 2021. Hypertension and hypertensive cardiovascular disease. Hyperlipidemia. Enlarged prostate. COPD. Osteoarthritis. GERD with esophagitis. Anxiety. PAST SURGICAL HISTORY: Left heart catheterization with PCI of the LAD 2015 CABG x 4 with HOSKINS to LAD, SVG to diagonal, SVG to obtuse marginal, SVG to PDA. Left herniorrhaphy. Vivien fundoplication. Cholecystectomy. Left shoulder rotator cuff tear repair. Deviated septum repair. Colonoscopy with polypectomy in 2016 EGD 2019. Carpal tunnel release. EGD and colonoscopy 10/2021 SOCIAL HISTORY: Patient smoked about a pack every day since the age of 15 and quit in 1979, he denies any alcohol ingestion, no drug use or abuse, he lives with his . FAMILY HISTORY: Father at the age of 72 from IA and also had history diabetes mellitus type 2, mother at the age of 84 from CAD and had diabetes mellitus type 2, patient had 5 sisters 1 sister from blood disorder, when had cardiac bypass surgery at the age of 37, the other 3 sisters are alive and okay, patient has 1 son with history of GERD and 1 daughter with no major medical problems. PHYSICAL EXAMINATION: General: This is a 68-year-old male who is lying down in bed in no apparent distress. HEENT: Head is atraumatic, normocephalic, pupils were equal round reactive to light and recommendation, extraocular muscle movement were intact, sclera nonicteric, conjunctivae were pale, mucous membranes of the mouth are somewhat dry. Neck: Supple, no JVP, normal carotid upstroke bilaterally, no lymphadenopathy. Chest: Decreased breath sounds at the bases, few rhonchi, no expiratory wheezes, no chest wall tenderness, no intercostal retractions. Heart: First heart sound is normal, second heart sounds normal there is systolic ejection murmur 2/6 located in the left sternal border. Abdomen: Soft, nontender, nondistended, positive bowel sounds. Extremities: There is no edema no calf tenderness DP +2 bilaterally. Neurologic examination: Patient is awake alert and oriented x3, cranial nerves II-12 appear grossly intact, muscle power were 5 out of 5 in upper extremities and 5 out of 5 in bilateral lower extremities, deep tendon reflexes normal bilaterally. ASSESSMENT AND PLAN: 1. Non-ST elevation IA. Continue patient on heparin drip, continue aspirin 81 mg once every day, metoprolol 50 mg once every day, continue atorvastatin 40 mg once every day, patient will be seen in consultation by cardiology he is scheduled to go for left heart catheterization tomorrow morning. 2. Coronary artery disease status post CABG x 4 with HOSKINS to LAD, SVG to diagonal branch, SVG to the obtuse marginal branch and SVG to PDA. Continue treatment as in the previous paragraph. 3. Hypertension and hypertensive cardiovascular disease. Continue patient on metoprolol 50 mg once every day as well as losartan 25 mg orally twice every day. Monitor the patient blood pressure very closely. 4. Mixed hyperlipidemia. Continue patient on atorvastatin 40 mg once every day, after lipid panel, keep LDL 55-70. 5. History of enlarged prostate. Monitor the patient for urinary retention. 6. GERD with esophagitis status post Vivien fundoplication. Continue p antoprazole 40 mg orally once every day. 7. Anxiety disorder. Continue with Xanax as needed. 8. DVT prophylaxis. Continue patient on heparin drip. 9. GI prophylaxis. Continue Protonix 40 mg once every day. 10. Admit to inpatient. Estimated length of stay 2 midnights. 11. Patient is full code. Past Medical History Past Medical History: Asthma, Chest Pain / Angina, GERD/Reflux, Hyperlipidemia, Hypertension, Myocardial Infarction (non Q-wave), Osteoarthritis (OA) Additional Past Medical History / Comment(s): . Last Myocardial Infarction Date:: 05/22/15 History of Any Multi-Drug Resistant Organisms: None Reported Past Surgical History: Cholecystectomy, Coronary Bypass/CABG, Heart Catheterization With Stent, Hernia Repair, Orthopedic Surgery Additional Past Surgical History / Comment(s): deviated septum, rt shoulder rotator cuff, EGD, colonoscopy,lt inguinal hernia repair, vivien fundoplication, left carpal tunnel, CABG 04/15/2021 Past Anesthesia/Blood Transfusion Reactions: No Reported Reaction Date of Last Stent Placement:: 05-23-15 Past Psychological History: Anxiety Smoking Status: Former smoker Past Alcohol Use History: Occasional Past Drug Use History: Marijuana - Past Family History Sister(s) Family Medical History: Cancer (Blood cancer not determined to be leukemia or multiple myeloma) Mother Family Medical History: Chest Pain / Angina, Diabetes Mellitus Additional Family Medical History / Comment(s): age 84, heart problems Father Family Medical History: Chest Pain / Angina Additional Family Medical History / Comment(s): age 72 Medications and Allergies Home Medications Medication Instructions Recorded Confirmed Type Rosuvastatin Calcium [Crestor] 20 mg PO W/LUNCH 10/27/18 11/09/23 History ALPRAZolam [Xanax] 0.25 mg PO HS PRN 02/24/20 11/09/23 History Omeprazole Magnesium [PriLOSEC OTC] 20 mg PO DAILY 05/01/21 11/09/23 History Aspirin EC [Ecotrin Low Dose] 81 mg PO HS 11/09/23 11/09/23 History Losartan [Cozaar] 25 mg PO BID 11/09/23 11/09/23 History Metoprolol Succinate (ER) [Toprol 50 mg PO HS 11/09/23 11/09/23 History XL] Nitroglycerin Sl Tabs [Nitrostat] 0.4 mg SUBLINGUAL Q5M PRN #25 tab 11/10/23 Rx Allergies Allergy/AdvReac Type Severity Reaction Status Date / Time clindamycin Allergy Rash/Hives Verified 11/09/23 15:10 Penicillins Allergy Rash/Hives Verified 11/09/23 15:10 Physical Exam Vitals: Vital Signs Temp Pulse Resp BP Pulse Ox 11/09/23 17:00 60 18 122/64 96 11/09/23 16:30 65 18 131/74 95 11/09/23 16:00 70 18 123/68 97 11/09/23 15:30 78 18 131/75 94 L 11/09/23 15:00 59 L 18 129/72 95 11/09/23 14:30 63 15 133/80 95 11/09/23 14:00 67 18 126/76 95 11/09/23 13:00 97.9 F 80 18 149/88 98 Intake and Output 11/09/23 11/09/23 11/09/23 06:59 14:59 22:59 Other: Weight 77.111 kg Results CBC & Chem 7: 11/09/23 13:25 11/09/23 13:25 Labs: Abnormal Lab Results - Last 24 Hours (Table) 11/09/23 11/09/23 11/09/23 Range/Units 13:25 13:25 16:49 Neutrophils # 8.7 H (1.3-7.7) k/uL Lymphocytes # 0.9 L (1.0-4.8) k/uL Glucose 101 H (74-99) mg/dL Calcium 10.6 H (8.4-10.2) mg/dL Troponin I 0.079 H* (0.000-0.034) ng/mL
--- NOTE | 2023-11-10 21:09 | P.DS ---
Providers Date of admission: 11/10/23 11:36 Expected date of discharge: 11/10/23 Attending physician: Gigi Hedrick Consults: 11/09/23 14:30 Consult Physician Urgent Consulting Provider: [facility] Consult Reason/Comments: Unstable angina Do you want consulting provider notified?: Yes Primary care physician: Gigi Hedrick [facility] Course: HISTORY OF PRESENT ILLNESS: This is a 68-year-old male with a previous medical history significant for coronary artery disease status post coronary artery bypass graft April 16, 2021 with HOSKINS to LAD, SVG to diagonal branch, SVG to the obtuse marginal branch and SVG to PDA, prior history of left heart catheterization with PCI of the LAD in 2014, hypertension and hypertensive cardiovascular disease, hyperlipidemia, osteoarthritis, history of GERD with esophagitis status post Tessa fundoplication, chronic obstructive pulmonary disease, anxiety disorder, enlarged prostate, patient was in his usual state of health till about a week ago when he went to [place] and he was doing some physical activity at that time he was feeling a bit of chest tightness associated with minimal exertional shortness of breath, patient did not do much about it, he came back to [place] and about a week ago, and yesterday he was helping his sister scraping the floor for about an hour and a half. Then he felt left-sided chest tightness radiating to the shoulder associated with significant cold sweat and shortness of breath, so he decided to come to the emergency department at [facility], had a twelve-lead EKG that showed sinus mechanism with nonspecific changes, his cardiac enzymes initially was negative the second stat came back positive patient was ruled in for non-ST elevation [place], he was started on heparin drip, he was given aspirin 325 mg once every day he was kept on beta-ira and statin and ARB as well he was admitted to the hospital he was seen in consultation by cardiology for left heart catheterization tomorrow morning. 11/10: Patient underwent left heart catheterization with Dr. Johnson today, that showed patent HOSKINS to LAD, patent SVG to the diagonal branch, patent SVG to the obtuse marginal branch, and patent SVG to the PDA, it was recommended to continue with aggressive medical therapy, continue patient on his aspirin 81 mg once every day, losartan 25 mg orally twice every day, metoprolol 50 mg at bedtime, monitor the patient lipid panel, keep LDL 55-70, continue patient on atorvastatin 40 mg once every day as well, patient he is to be discharged home this evening after 8:00, if cleared by cardiology. Discharge diagnoses: 1. Non-ST elevation VT. Post left heart catheterization that showed patent HOSKINS to LAD, patent SVG to the diagonal branch, patent SVG to the obtuse marginal, and patent SVG to the PDA. 2. Coronary artery disease status post CABG x 4 with HOSKINS to LAD, SVG to diagonal branch, SVG to the obtuse marginal branch and SVG to PDA. 3. Hypertension and hypertensive cardiovascular disease. 4. Mixed hyperlipidemia. 5. History of enlarged prostate. 6. GERD with esophagitis status post Tessa fundoplication. 7. Anxiety disorder. Patient Condition at Discharge: Stable Plan - Discharge Summary Discharge Rx Participant: No New Discharge Prescriptions: New Nitroglycerin Sl Tabs [Nitrostat] 0.4 mg SUBLINGUAL Q5M PRN #25 tab PRN Reason: Chest Pain Continue Rosuvastatin Calcium [Crestor] 20 mg PO W/LUNCH ALPRAZolam [Xanax] 0.25 mg PO HS PRN PRN Reason: Anxiety Aspirin EC [Ecotrin Low Dose] 81 mg PO HS Metoprolol Succinate (ER) [Toprol XL] 50 mg PO HS Losartan [Cozaar] 25 mg PO BID Omeprazole Magnesium [PriLOSEC OTC] 20 mg PO DAILY Discharge Medication List Rosuvastatin Calcium [Crestor] 20 mg PO W/LUNCH 10/27/18 [History] ALPRAZolam [Xanax] 0.25 mg PO HS PRN 02/24/20 [History] Omeprazole Magnesium [PriLOSEC OTC] 20 mg PO DAILY 05/01/21 [History] Aspirin EC [Ecotrin Low Dose] 81 mg PO HS 11/09/23 [History] Losartan [Cozaar] 25 mg PO BID 11/09/23 [History] Metoprolol Succinate (ER) [Toprol XL] 50 mg PO HS 11/09/23 [History] Nitroglycerin Sl Tabs [Nitrostat] 0.4 mg SUBLINGUAL Q5M PRN #25 tab 11/10/23 [Rx] Follow up Appointment(s)/Referral(s): [facility] [Provider Group] - 1 Week (Please call to schedule appointment) Gigi Hedrick MD [Primary Care Provider] - 1-2 days (please call to schedule appointment time) Patient Instructions/Handouts: *Surgery [facility] - After Heart Catheterization - [employer] Management Associate Instructions Discharge Disposition: HOME SELF-CARE
[2023-11-11] MEDS ORDERED: ASPIRIN 81 MG PO SCH (09:00)
[2023-11-11] MEDS ORDERED: ASPIRIN 325 MG TAB PO SCH (09:00)
== END 2023-11-10 22:57 | disposition home or self-care (01) | DRG 282 ==
LOC: EC 12:59 → 6NMEDSUR 14:35 → 3SCARD 19:33 → OBSVTOIN 11-10 11:36 → 3SCARD 11-10 12:18
PROVIDERS: ADMIT Internal Medicine; ATTEND Internal Medicine
PROC: B2181ZZ Fluoroscopy of Left Internal Mammary Bypass Graft using Low Osmolar Contrast (ICD-10-PCS; 2023-11-10)
PROC: B2111ZZ Fluoroscopy of Multiple Coronary Arteries using Low Osmolar Contrast (ICD-10-PCS; principal; 2023-11-10 12:45)
PROC: B2121ZZ Fluoroscopy of Single Coronary Artery Bypass Graft using Low Osmolar Contrast (ICD-10-PCS; 2023-11-10 12:45)
DX: I21.4 Non-ST elevation (NSTEMI) myocardial infarction (principal); I25.110 Atherosclerotic heart disease of native coronary artery with unstable angina pectoris; F41.9 Anxiety disorder, unspecified; E78.2 Mixed hyperlipidemia; K21.00 Gastro-esophageal reflux disease with esophagitis, without bleeding; I10 Essential (primary) hypertension; I25.2 Old myocardial infarction; I08.1 Rheumatic disorders of both mitral and tricuspid valves; I45.10 Unspecified right bundle-branch block; M19.90 Unspecified osteoarthritis, unspecified site; N40.0 Benign prostatic hyperplasia without lower urinary tract symptoms; Z79.899 Other long term (current) drug therapy; Z79.82 Long term (current) use of aspirin; Z82.49 Family history of ischemic heart disease and other diseases of the circulatory system; Z95.5 Presence of coronary angioplasty implant and graft; Z95.1 Presence of aortocoronary bypass graft
CPT/HCPCS: 36415; 71046; 80053; 80061; 81001; 83735; 83880; 84484; 85025; 85610; 85730; 93005; 93306; 96365; 96366; 99291

== ENCOUNTER → 2023-11-30 | Outpatient (CLI) | payer MEDICARE, OTHER ==
--- NOTE | 2023-11-30 17:37 | US ---
EXAMINATION TYPE: US kidneys/renal and bladder DATE OF EXAM: 11/30/2023 COMPARISON: NONE CLINICAL INDICATION: Male, 68 years old with history of N40.1 ENLARGED PROSTATE R31.29 MICROSCOPIC HE MATURIA; microscopic hematuria, no pain EXAM MEASUREMENTS: Right Kidney: 10.8 x 4.7 x 5.4 cm Left Kidney: 11.3 x 4.1 x 6.0 cm Right Kidney: No hydronephrosis or masses seen Left Kidney: No hydronephrosis or masses seen Bladder: wnl IMPRESSION: No hydronephrosis.
== END | disposition home or self-care (01) ==
LOC: RADUSWWP 15:17
PROVIDERS: ATTEND Internal Medicine
DX: N40.1 Benign prostatic hyperplasia with lower urinary tract symptoms (principal); R31.29 Other microscopic hematuria; R30.0 Dysuria
CPT/HCPCS: 76770

== ENCOUNTER 2024-02-23 12:13 | Day surgery (SDC) | payer MEDICARE, OTHER ==
[2024-02-19 11:30] VITALS: BMI 25.1
[2024-02-23] MEDS: LACTATED RINGERS 1,000 ML IV SCH (12:44)
[2024-02-23] MEDS: IV FLUID CONTINUATION 1,000 ML IV ONE (12:45)
[2024-02-23] MEDS: LIDOCAINE 1% (10MG/ML) FOR IV START INTRADERMA PRN (12:45)
[2024-02-23 12:55] VITALS: RESP 16; TEMP 97
[2024-02-23] MEDS ORDERED: PROPOFOL 10 MG/ML 20 ML VIAL IV ONE (13:16)
[2024-02-23] MEDS ORDERED: LIDOCAINE 2% (PF) 20 MG/ML 5 ML VIAL ONE (13:16)
--- NOTE | 2024-02-23 13:19 | P.GSHP ---
History of Present Illness H&P Date: 02/23/24 Chief Complaint: GERD 68-year-old male here for upper endoscopy. Patient with issues of chronic reflux. Says that when he tries to wean himself off of PPIs he develops worsening nausea. Still has mild reflux at times. History of previous fundoplication in the past. Last EGD 4 years ago. Past Medical History Past Medical History: Asthma, Chest Pain / Angina, GERD/Reflux, Hyperlipidemia, Hypertension, Myocardial Infarction (non Q-wave), Osteoarthritis (OA), Prostate Disorder Additional Past Medical History / Comment(s): No medication required for Asthma. Enlarged prostate. Last Myocardial Infarction Date:: 05/22/15 History of Any Multi-Drug Resistant Organisms: None Reported Past Surgical History: Cholecystectomy, Coronary Bypass/CABG, Heart Catheterization With Stent, Hernia Repair, Orthopedic Surgery Additional Past Surgical History / Comment(s): Deviated septum, right shoulder rotator cuff, EGD, colonoscopy, left inguinal hernia repair, vivien fundoplication, left carpal tunnel, quadruple CABG 04/15/2021. Past Anesthesia/Blood Transfusion Reactions: No Reported Reaction Date of Last Stent Placement:: 05-23-15 Past Psychological History: Anxiety Additional Psychological History / Comment(s): . Smoking Status: Former smoker Past Alcohol Use History: Occasional Additional Past Alcohol Use History / Comment(s): Quit smoking at age 25, started at age 16. Past Drug Use History: Marijuana Additional Drug Use History / Comment(s): No current Marijuana use. - Past Family History Sister(s) Family Medical History: Cancer (Blood cancer not determined to be leukemia or multiple myeloma) Mother Family Medical History: Chest Pain / Angina, Diabetes Mellitus Additional Family Medical History / Comment(s): age 84, heart problems Father Family Medical History: Chest Pain / Angina Additional Family Medical History / Comment(s): age 72 Medications and Allergies Home Medications Medication Instructions Recorded Confirmed Type Rosuvastatin Calcium [Crestor] 20 mg PO DAILY 10/27/18 02/19/24 History ALPRAZolam [Xanax] 0.25 mg PO DIRECTED PRN 02/24/20 02/19/24 History Omeprazole Magnesium [PriLOSEC OTC] 20 mg PO DAILY 05/01/21 02/19/24 History Losartan [Cozaar] 25 mg PO BID 11/09/23 02/19/24 History Tamsulosin [Flomax] 0.4 mg PO DAILY 02/19/24 02/19/24 History Allergies Allergy/AdvReac Type Severity Reaction Status Date / Time clindamycin Allergy Rash/Hives Verified 02/23/24 12:39 Penicillins Allergy Rash/Hives Verified 02/23/24 12:39 Surgical - Exam Vital Signs Temp Pulse Resp BP Pulse Ox 97.0 F L 56 L 16 156/71 98 02/23/24 12:45 02/23/24 12:45 02/23/24 12:45 02/23/24 12:45 02/23/24 12:45 Physical exam: General: Well-developed, well-nourished HEENT: Normocephalic, sclerae nonicteric Abdomen: Nontender, nondistended Extremities: No edema Neuro: Alert and oriented Assessment and Plan (1) GERD (gastroesophageal reflux disease) Narrative/Plan: Will proceed with EGD at this time. Current Visit: Yes Status: Acute Code(s): K21.9 - GASTRO-ESOPHAGEAL REFLUX DISEASE WITHOUT ESOPHAGITIS SNOMED Code(s): 217345341
--- NOTE | 2024-02-23 13:38 | P.PCN ---
Date of Procedure: 02/23/24 Procedure(s) Performed: Preoperative Dx: GERD Postoperative Dx: Mild gastritis Procedure: EGD with Bx Anesthesia: Sedation Endoscopist: Dr. Plummer Specimens: Antrum Endoscopic Procedure: The patient was on the endoscopy table in the left decubitus position. The Olympus gastroscope was inserted into the oropharynx and passed under direct visualization to the region of the third portion of the duodenum. From that point the scope was slowly withdrawn inspecting all surfaces carefully. There were no neoplastic inflammatory or polypoid lesions throughout the duodenum. The pylorus was widely patent. The stomach was carefully inspected. There was mild gastritis present. A biopsy of the antrum took place to rule out H. pylori. Retroflexion revealed a normal-appearing plication with no evidence of hernia. The esophagus was then carefully examined. There were no neoplastic inflammatory or polypoid lesions throughout the visualized esophagus. The patient was then taken to the recovery room in stable condition per anesthesia guidelines. Recommendations: Continue antiacid therapy. Await biopsy results.
[2024-02-23 13:57] VITALS: BP 151/78; PULSE 54
== END 2024-02-23 14:03 | disposition home or self-care (01) ==
LOC: ORWHC2ENDO 12:13
PROVIDERS: ATTEND Surgery
DX: K29.70 Gastritis, unspecified, without bleeding (principal); J45.909 Unspecified asthma, uncomplicated; I25.2 Old myocardial infarction; M19.90 Unspecified osteoarthritis, unspecified site; N40.0 Benign prostatic hyperplasia without lower urinary tract symptoms; I10 Essential (primary) hypertension; F41.9 Anxiety disorder, unspecified; E78.5 Hyperlipidemia, unspecified; K21.9 Gastro-esophageal reflux disease without esophagitis; Z87.891 Personal history of nicotine dependence; Z88.0 Allergy status to penicillin; Z90.49 Acquired absence of other specified parts of digestive tract; Z95.1 Presence of aortocoronary bypass graft; Z98.890 Other specified postprocedural states
CPT/HCPCS: 88305; 43239; J2704; J2001

== ENCOUNTER → 2024-10-19 | Outpatient (CLI) | payer MEDICARE, OTHER ==
--- NOTE | 2024-10-19 15:03 | XR ---
EXAMINATION TYPE: XR ribs RT w pa chest xray, 5 views DATE OF EXAM: 10/19/2024 1:25 PM COMPARISON: 11/09/2023 CLINICAL INDICATION: Male, 69 years old with history of R07.81 Rib pain rt side, , TECHNIQUE: Frontal and lateral views FINDINGS: Median sternotomy wires. Post-CABG clips. Heart normal size. Aorta and pulmonary vasculature within n ormal limits. No consolidation or pleural effusion. No displaced right rib fractures seen. IMPRESSION: No acute cardiopulmonary process. No displaced right rib fracture. [facility], Workstation: [email or web address], 10/19/2024 3:00 PM
== END | disposition home or self-care (01) ==
LOC: RADXRMAIN 13:01
PROVIDERS: ATTEND Internal Medicine
DX: R07.81 Pleurodynia (principal)